=== PATIENT | male | born 1975 | race Caucasian/White ===

== ENCOUNTER 2024-09-01 18:12 | Emergency (ER) | payer OTHER, SELFPAY ==
--- NOTE | ~2024-09-01 | XR_ITS ---
CHEST RADIOGRAPH, PA AND LATERAL CLINICAL HISTORY: abnormal breath sounds RLL cough x 1 week . COMPARISON: None available TECHNIQUE: PA and lateral views of the chest. FINDINGS The cardiomediastinal silhouette is unremarkable. Increased opacification of the superior segment of the right lower lobe, possibly an early infiltrate . The remainder of the lungs are clear. Visualized osseous structures and soft tissues are unremarkable. IMPRESSION: Early infiltrate within the right lower lobe, as detailed above. Reviewed, dictated and finalized at location A.
[2024-09-01 18:28] VITALS: BP 152/99; PULSE 87; RESP 20; TEMP 36.6; O2SAT 97
[2024-09-01 18:30] VITALS: BP 152/99; PULSE 87; RESP 20; TEMP 36.6; O2SAT 97
--- NOTE | 2024-09-01 18:34 | ED.URI ---
HPI - URI/Sore Throat General Chief Complaint: Upper Respiratory Infection Stated Complaint: Fever Time Seen by Provider: 09/01/24 18:30 Source: patient, RN notes reviewed and old records reviewed Mode of arrival: ambulatory Limitations: no limitations History of Present Illness HPI Narrative: Patient presents with complaints of 4 days of productive cough and fever. He reports multiple sick contacts in household, 1 child does have pneumonia. He does report pain with coughing, sometimes coughing until he is short of breath. Otherwise he denies any chest pain or shortness of breath. He is in no distress upon arrival. He has no other concerns or complaints at this time. Reports T-max of 102?, has been taking Tylenol ibuprofen with moderate relief. Related Data Allergies Allergy/AdvReac Type Severity Reaction Status Date / Time No Known Allergies Allergy Verified 09/01/24 18:30 Review of Systems Review of Systems: All systems reviewed & are unremarkable except as noted in HPI and below Constitutional: Constitutional: Reports no additional constitutional complaints ENT: Reports system reviewed and no additional complaints, except as documented Cardiovascular: Cardiovascular: Reports no additional cardiovascular complaints Respiratory: Respiratory: Reports as per HPI, Reports no additional respiratory complaints, Reports chest congestion, Reports cough, Reports excessive phlegm production and Reports pain with cough Gastrointestinal: Gastrointestinal: Reports no additional gastrointestinal complaints PMFSH Comments At the time of my signature, I reviewed and agree with the nursing past medical, surgical, social, and family history. There is no relevant family history pertinent to the patient complaint. Exam Const: General: cooperative, no acute distress, alert and awake Orientation/consciousness: oriented to person, oriented to place and oriented to time HENMT: Head: normal to inspection Resp: Effort & Inspection: normal respiratory effort and able to speak in complete sentences Auscultation: clear to auscultation bilaterally, crackles, rales, rhonchi right lower and wheezes scattered wheezes Cardio: Palpation: normal PMI Rate: regular rate Rhythm: regular rhythm Heart sounds: S1 normal heart sound present and S2 normal heart sound present Neuro: General: oriented to person, oriented to place and oriented to time Cranial nerves: Yes CN's II-XII intact bilaterally Psych: Appearance: grossly normal Thought process: Normal thought process present Insight: Good insight present (Psych) Judgement: Good judgement present (Psych) Course Course Level of Care: Express Care Visit Vital Signs Vital signs: Vital Signs Temperature 97.8 F 10/11/24 18:28 Pulse Rate 87 09/01/24 18:28 Respiratory Rate 20 09/01/24 18:28 Blood Pressure 152/99 H 09/01/24 18:28 Pulse Oximetry 97 09/01/24 18:28 Oxygen Delivery Room Air 09/01/24 18:28 Temperature 97.8 F 09/01/24 18:30 Pulse Rate 87 09/01/24 18:30 Respiratory Rate 20 09/01/24 18:30 Blood Pressure 152/99 H 09/01/24 18:30 Pulse Oximetry 97 09/01/24 18:30 Oxygen Delivery Room Air 09/01/24 18:30 Reviewed MDM - URI/Sore Throat MDM Narrative Medical decision making narrative: patient nontoxic appearing, no shortness of breath or other distress. Stable for discharge home with p.o. antibiotics and inhaler. Exam and x-ray consistent with right lower lobe pneumonia. Follow with primary care provider without fail. Emergency department for new or worse symptoms. Elevated blood pressure noted, another reason to follow with primary care provider. Discharge instructions reviewed with patient, as well as provided in writing per nursing staff. The instructions also include specific and strict return/GO TO THE ER as well as f/u information. All questions have been answered, and the patient deny any further questions with discharge and discha
== END 2024-09-01 19:23 | disposition home or self-care (01) ==
PROVIDERS: Emergency Provider Nurse Practitioner Family
DX: R03.0 Elevated blood-pressure reading, without diagnosis of hypertension (principal); J10.1 Influenza due to other identified influenza virus with other respiratory manifestations
CPT/HCPCS: 71046; 99213; G0463

== ENCOUNTER 2024-10-18 11:16 | Outpatient (CLI) | payer OTHER, SELFPAY ==
--- NOTE | ~2024-10-18 | XR_ITS ---
EXAMINATION: XR chest 2V 10/18/2024 11:45 INDICATION: Personal history of pneumonia PROCEDURE: 2 view chest COMPARISON: 09/01/2024 FINDINGS: The lungs are clear. The cardiomediastinal silhouette is within normal limits. There are no pleural effusions. There is no pneumothorax suspected. IMPRESSION: 1: NO ACUTE CARDIOPULMONARY DISEASE. Reviewed, dictated and finalized at location B. 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
[2024-10-18 11:59] LABS: Alanine Aminotransferase 34 U/L (6-50); Albumin Level 4.4 g/dL (3.5-5.1); Alkaline Phosphatase 62 U/L (38-126); Anion Gap 6 mmol/L (4-12); Aspartate Amino Transferase 25 U/L (17-59); Bilirubin,Total 1.2 mg/dL (0.2-1.3); Blood Urea Nitrogen 17 mg/dL (9-20); Calcium 8.7 mg/dL (8.4-10.2); Carbon Dioxide 27 mmol/L (22-30); Chloride 106 mmol/L (98-107); Cholesterol 203 mg/dL (0-200); Estimated Glomerular Filt Rate > 60; Glucose 98 mg/dL (65-110); HDL Direct 47 mg/dL; Hematocrit 45.9 % (42.0-52.0); Hemoglobin 15.8 g/dL (14.0-18.0); Mean Corpuscular HGB Conc 34.4 g/dl (32-36); Mean Corpuscular Volume 87.3 fl (80-100); Platelet Count Result 319 k/mm3 (150-375); Potassium 4.5 mmol/L (3.4-5.0); Red Blood Count 5.26 M/mm3 (4.6-6.20); Red Cell Distribution Width 12.6 % (11.5-14.5); Sodium 139 mmol/L (137-145); Triglycerides 149 mg/dL (<150); White Blood Count 8.1 K/mm3 (4.5-10.0)
[2024-10-18 12:10] LABS: LDL Cholesterol Direct 107 mg/dL
== END 2024-10-18 11:17 | disposition home or self-care (01) ==
LOC: ANHLAB 11:18
PROVIDERS: Visit Provider Family Medicine
DX: Z00.00 Encounter for general adult medical examination without abnormal findings (principal); E66.9 Obesity, unspecified; Z87.01 Personal history of pneumonia (recurrent)
CPT/HCPCS: 36415; 71046; 80053; 80061; 82306; 82607; 85027

== ENCOUNTER 2025-01-10 00:58 | Day surgery (SDC) | payer OTHER, SELFPAY ==
[2024-12-25 14:00] VITALS: BMI 38.5
--- OUTSIDE RECORDS SUMMARY | 2025-01-10 01:01 | XMS_ITS | Encounter Summary ---
Author Organization [facility] Address [address] [place] [address] Care Team Providers Care Stretching Machine Tender Frame Name Role Phone Anton Pickens MD Primary Care Provider [phone] Encounter Details Date Type Department Care Team (Late st Contact Info) Description 05/26/[address] [facility] Conversion Md, Generic Conversion, Social History Tobacco Use Types Packs/Day Years Used Date Smoking Tobacco: Never Assessed Sex and Gender Information Value Date Recorded Sex Assigned at Not on file Legal Sex Male 11:12 PM CDT Gender Identity Not on file Sexual Orientation Not on file documented as of this encounter Plan of Treatment Not on file documented as of this encounter Visit Diagnoses Not on filedocumented in this encounter Care Teams Stretching Machine Tender Frame Relationship Specialty Start Date End Date Anton Pickens MD PCP - General FAMILY PRACTICE 01/05/19 documented as of this encounter
--- OUTSIDE RECORDS SUMMARY | 2025-01-10 01:01 | XMS_ITS | Clinical Summary ---
Author Organization [facility] Address [address] [place] [address] Care Team Providers Care Twill Cutter Name Role Phone Anton Pickens MD Primary Care Provider [phone] Allergies No known active allergies Medications fluticasone propionate (FLONASE) 50 MCG/ACT nasal sprayIndications :Decreased sense of smell 1 spray by Nasal route daily. 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 Elevated BP without diagnosis of hypertension Family History Medical History Relation Comments Cancer Father colon Diabetes Father Heart Disease Father Hyperlipidemia Father Relation Status Comments Father Mother Alive Social History Tobacco Use Types Packs/Day Years Used Date Smoking Tobacco: Never Smokeless Tobacco: Never Alcohol Use Standard Drinks/Week Comments Yes 0 (1 standard drink = 0.6 oz pur e alcohol) AUDIT-C Answer Date Recorded Frequency of Alcohol Consumption Never 02/16/2019 Average Number of Drinks Not on file 019 Frequency of Binge Drinking Not on file 01/21 Sex and Gender Information Value Date Recorded Sex Assigned at Not on file Legal Sex Male 11:12 PM CDT Gender Identity Not on file Sexual Orientation Not on file Last Filed Vital Signs Vital Sign Reading Time Taken Comments Blood Pressure 138/80 04/06/2019 11:09 AM CDT Pulse 78 04/06/2019 11:09 AM CDT Temperature 36.9 C (98.5 F) 02/16/2019 10:58 AM CDT Respiratory Rate - - Oxygen Saturation 98% 04/06/2019 11:09 AM CDT Inhaled Oxygen Concentration - - Weight 119.3 kg (263 lb) 04/06/2019 11:09 AM CDT Height 186.7 cm (6' 1.5 ) 04/23/2016 7:35 AM CDT Body Mass Index 34.23 04/23/2016 7:35 AM CDT Plan of Treatment Health Maintenance Due Date Last Done Comments Colorectal Cancer Screening Colonoscopy (10 Years) 1975 Hepatitis C 1993 Hepatitis B Vaccines (1 of 3 - 19+ 3-dose series) 1994 DTaP, Tdap and Td Vaccines (6 - Td or Tdap) 03/05/2019 03/05/2009, 07/14/1984, 06/26/1980, Additional history exists Annual Physical 02/17/2020 02/16/2019 COVID-19 Vaccine ( season) 2024 Influenza Adult (#1) 2024 Meningococcal B Vaccine Aged Out No l onger eligible based on patient's age to complete this topic Meningococcal Vaccine Aged Out No ja mayra eligible based on patient's age to complete this topic Pneumococcal Vaccine: Pediatrics (0 to 5 Years) and At-Risk Patients (6 to 64 Years) Aged Out No longer eligible based on patient's age to complete this topic RSV Immunizations Under 20 Months Aged Out No longer eligible based on patient's age to complete this topic Insurance Care Teams Twill Cutter Relationship Specialty Start Date End Date Anton Pickens MD PCP - General FAMILY PRACTICE 01/05/19
[2025-01-10 09:54] VITALS: BP 128/91; PULSE 63; RESP 18; TEMP 36.3; O2SAT 99; BMI 37.9
[2025-01-10] MEDS: LACTATED RINGERS 1,000 ML 150 ML IV CONT (09:58)
--- NOTE | 2025-01-10 11:03 | P.PNAN_ITS ---
Anes - Initial Pre Proc Eval Procedure: Operation Date: 01/10/25 11:00 Proposed Procedures p Screening Colonoscopy - Yash Handley MD Date/Time: 01/10/25 11:03 Surgeon: Yash Handley MD Pre Op Diagnosis: screening colon Patient Data Age: 49 Gender: M Height: 1.88 m Weight: 133.9 kg Last Vital Signs Temp 97.4 F L 01/10/25 09:54 Pulse 63 01/10/25 09:54 Resp 18 01/10/25 09:54 BP 128/91 H 01/10/25 09:54 Pulse Ox 99 01/10/25 09:54 O2 Del Method Room Air 01/10/25 09:54 Allergies Allergy/AdvReac Type Severity Reaction Status Date / Time No Known Allergies Allergy Verified 01/10/25 09:51 Home Medications ?Medication ?Instructions ?Recorded ?Confirmed ?Type tirzepatide (weight loss) 2.5 See Rx Instructions .Route 11/28/24 01/10/25 Rx mg/0.5 mL subcutaneous pen .COMPLEX #2 mL injector (Zepbound) Patient hx anesthesia problems: none Family hx anesthesia problems: none Results Review: All pre-operative results and documents have been reviewed as part of the pre- operative evaluation. [facility] Family History Family History Father Carcinoma of colon Sibling Breast cancer Sibling Acute myocardial infarction Social History Social History Smoking status: Never smoker Tobacco type: cigarettes Alcohol intake: current Drinks per week: 6 Alcohol use details: Beer Substance use: never Substance use type: does not use Do You Feel Safe in your Home?: Yes Lack of Transportation: No Lack of Food: Never True Current Housing: I Have Housing Concerned About Future Housing: No Difficulty Paying Gas/Electric Bills: No Difficulty Paying for Meds: No Currently Unemployed: YES Education: High School Diploma/GED Difficulty w/ Childcare or Family Care: No Living arrangements: with family Occupation/Education: occupation Gender identity (if verbalized by the patient): Male Sexual Orientation (if Verbalized by the Patient): Straight or Heterosexual Spiritual care concerns: No Agree to blood products: Yes Anes - Eval Final PreProcedure Day of Procedure 01/10/25 11:03 Patient weight: obese Lungs: normal air movement Airway: Mallampati scale class II Neurological: alert and oriented Last oral intake: >/= 8 hours ASA classification: II Emergent: no Anesthetic plan: proceed Anesthesia type and monitoring: general GIVS and standard monitoring Results Review: All pre-operative results and documents have been reviewed as part of the pre-o perative evaluation. BMI 37. Informed Consent: The patient's anesthetic plan and its attendant risks and benefits were discussed with the patient/family/POA. Questions were solicited and answers provided to the satisfaction of the patient/family/POA.
--- NOTE | 2025-01-10 11:03 | PM.HPGS ---
History of Present Illness History of Present Illness Consent: Risks, benefits, and alternatives have been discussed and questions answered. Patient agrees to proceed with procedure. Chief complaint: screening colon Narrative: Selvin Cruz is a 49 year old male here for first screening colonoscopy Review of Systems Review of Systems: All systems reviewed & are unremarkable except as noted in HPI and below PMFSH Family History Family History (Updated 10/18/24 @ 09:54 by Starla Souza CMA) Father Carcinoma of colon Sibling Breast cancer Sibling Acute myocardial infarction Social History Social History (Updated 10/18/24 @ 09:56 by Starla Souza CMA) Smoking status: Never smoker Tobacco type: cigarettes Alcohol intake: current Drinks per week: 6 Alcohol use details: Beer Substance use: never Substance use type: does not use Do You Feel Safe in your Home?: Yes Lack of Transportation: No Lack of Food: Never True Current Housing: I Have Housing Concerned About Future Housing: No Difficulty Paying Gas/Electric Bills: No Difficulty Paying for Meds: No Currently Unemployed: YES Education: High School Diploma/GED Difficulty w/ Childcare or Family Care: No Living arrangements: with family Occupation/Education: occupation Gender identity (if verbalized by the patient): Male Sexual Orientation (if Verbalized by the Patient): Straight or Heterosexual Spiritual care concerns: No Agree to blood products: Yes Meds Home Medications and Allergies Home Medications ?Medication ?Instructions ?Recorded ?Confirmed ?Type tirzepatide (weight loss) 2.5 See Rx Instructions .Route 11/28/24 01/10/25 Rx mg/0.5 mL subcutaneous pen .COMPLEX #2 mL injector ([employer]) Allergies Allergy/AdvReac Type Severity Reaction Status Date / Time No Known Allergies Allergy Verified 01/10/25 09:51 Vital Signs Vital Signs - 24 hr 01/10/25 09:54 Temperature 97.4 F L Pulse Rate 63 Respiratory Rate 18 Blood Pressure 128/91 H Pulse Oximetry 99 Oxygen Delivery Room Air Exam Const: General: comfortable and no acute distress HENMT: Face/Nose/Sinus: Normal nares present Eyes: General: appearance normal, both eyes and all related structures Neck: Neck: no JVD Resp: Auscultation: clear to auscultation bilaterally Cardio: Rate: regular rate Rhythm: regular rhythm GI: Inspection: non-distended GI Palp: Yes Soft to palpation Skin: General skin exam: normal color Neuro: General: gait normal Speech: normal speech Extrem: General: normal to inspection Psych: Mental Status: mental status grossly normal Assessment and Plan Assessment and plan (1) Colon cancer screening: Code(s): Z12.11 - Encounter for screening for malignant neoplasm of colon Status: Acute Assessment and Plan: colonoscopy
[2025-01-10 11:29] VITALS: BP 126/79; PULSE 125; RESP 21; O2SAT 94
[2025-01-10 11:39] VITALS: BP 117/88; PULSE 128; RESP 23; O2SAT 99
[2025-01-10 11:49] VITALS: BP 106/72; PULSE 121; RESP 20; O2SAT 100
--- NOTE | 2025-01-10 12:02 | WPDANESPN ---
Anes - Prog Note Post-Op Date/Time: 01/10/25 12:02 Vital Signs: Last Vital Signs Temp 97.4 F L 01/10/25 09:54 Pulse 128 H 01/10/25 11:39 Resp 23 H 01/10/25 11:39 BP 117/88 01/10/25 11:39 Pulse Ox 99 01/10/25 11:39 O2 Del Method Room Air 01/10/25 11:39 Pain Score (VAS): 0 I/O: Intake & Output 01/09/25 01/10/25 01/10/25 23:59 07:59 15:59 Intake Total 0 Balance 0 Patient Feedback: pt awake. resting without complaint. pt's HR remains tachy, variable 110-130's. pt states he does feel that his HR is elevated periodically. discussed need for follow up with pt's primary care for further evaluation.
--- NOTE | 2025-01-10 12:55 | SUR.PHASEII ---
1200 ANTHONY DURBIN CHECKED ON PATIENT; HR STILL IN 120'S; NO SOB/DIZZINESS. PATIENT ENCOURAGED TO BE EVALUATED BY PMD FOR TACHYCARDIA.
== END 2025-01-10 12:12 | disposition home or self-care (01) ==
PROVIDERS: PCP Family Medicine; Visit Provider Internal Medicine Gastroenterology
PROC: 0DJD8ZZ Inspection of Lower Intestinal Tract, Via Natural or Artificial Opening Endoscopic (ICD-10-PCS; CPT 45378; principal; 2025-01-10 11:00)
DX: Z12.11 Encounter for screening for malignant neoplasm of colon (principal); D12.8 Benign neoplasm of rectum; K64.8 Other hemorrhoids; K57.30 Diverticulosis of large intestine without perforation or abscess without bleeding; E66.9 Obesity, unspecified; Z68.37 Body mass index [BMI] 37.0-37.9, adult; Z79.85 Long-term (current) use of injectable non-insulin antidiabetic drugs; Z80.0 Family history of malignant neoplasm of digestive organs; Z80.3 Family history of malignant neoplasm of breast; Z82.49 Family history of ischemic heart disease and other diseases of the circulatory system
CPT/HCPCS: 45385; 88305; J2003; J2704; J2765; J7120

== ENCOUNTER 2025-02-16 17:05 | Emergency (ER) | payer OTHER, SELFPAY ==
--- NOTE | ~2025-02-16 | XR_ITS ---
EXAMINATION: XR chest 2V 02/16/2025 17:33 INDICATION: Cough and shortness of breath for 2 weeks PROCEDURE: 2 view chest COMPARISON: 10/18/2024 FINDINGS: The lungs are clear. The cardiomediastinal silhouette is within normal limits. There are no pleural effusions. There is no pneumothorax suspected. IMPRESSION: 1: NO ACUTE CARDIOPULMONARY DISEASE. Reviewed, dictated and finalized at location A.
--- OUTSIDE RECORDS SUMMARY | 2025-02-16 17:08 | XMS_ITS | Clinical Summary ---
Author Organization [facility] Address [address] [place] [address] Care Team Providers Care Construction Engineer Name Role Phone Anton Pickens MD Primary Care Provider [phone] Allergies No known active allergies Medications fluticasone [...] to complete this topic Insurance Care Teams Construction Engineer Relationship Specialty Start Date End Date Anton Pickens MD PCP - General FAMILY PRACTICE 01/05/19
--- OUTSIDE RECORDS SUMMARY | 2025-02-16 17:08 | XMS_ITS | Encounter Summary ---
Author Organization [facility] Address [address] [place] [address] Care Team Providers Care Locomotive Oiler Name Role Phone Anton Pickens MD Primary Care Provider [phone] Encounter Details Date Type Department Care Team (Late st Contact Info) Description 05/26/2000 Abstract [facility] Conversion Md, Generic Conversion, Social History [...] on filedocumented in this encounter Care Teams Locomotive Oiler Relationship Specialty Start Date End Date Anton Pickens MD PCP - General FAMILY PRACTICE 01/05/19 documented as of this encounter
--- NOTE | 2025-02-16 17:16 | ED.URI ---
HPI - URI/Sore Throat General Chief Complaint: Upper Respiratory Infection Stated Complaint: lung and side pain/poss pneumonia Time Seen by Provider: 02/16/25 17:07 Source: patient Mode of arrival: ambulatory Limitations: no limitations History of Present Illness HPI Narrative: Selvin is a 49-year-old male patient presenting to the clinic today with complaints of cough, chest congestion, shortness of breath on exertion, and left-sided lung pain. He thinks he may have pneumonia. Feels some was sling and crackling over the left lungs. Symptoms been going on for 2 weeks. Cough is nonproductive however 1 day he did cough up some blood. Denies any fevers, chills, or body aches. States his sons have both had influenza A in the last couple months. Related Data Allergies Allergy/AdvReac Type Severity Reaction Status Date / Time No Known Allergies Allergy Verified 02/16/25 17:22 Review of Systems Review of Systems: Pertinent positives per HPI. Patient denies any fever, chills, rash, headache, visual changes, dizziness, chest pain, palpitations, nausea, vomiting, diarrhea, constipation, abdominal pain, or any urinary issues. [facility] Family History Family History Father Carcinoma of colon Sibling Breast cancer Sibling Acute myocardial infarction Social History Social History Smoking status: Never smoker Tobacco type: cigarettes Alcohol intake: current Drinks per week: 6 Alcohol use details: Beer Substance use: never Substance use type: does not use Do You Feel Safe in your Home?: Yes Lack of Transportation: No Lack of Food: Never True Current Housing: I Have Housing Concerned About Future Housing: No Difficulty Paying Gas/Electric Bills: No Difficulty Paying for Meds: No Currently Unemployed: YES Education: High School Diploma/GED Difficulty w/ Childcare or Family Care: No Living arrangements: with family Occupation/Education: occupation Gender identity (if verbalized by the patient): Male Sexual Orientation (if Verbalized by the Patient): Straight or Heterosexual Spiritual care concerns: No Agree to blood products: Yes Comments At the time of my signature, I reviewed and agree with the nursing past medical, surgical, social, and family history. There is no relevant family history pertinent to the patient complaint. Exam Narrative: General: Well-developed, obese, in no apparent distress Head: Normocephalic, atraumatic Eyes: Pupils equally round and reactive to light bilaterally, EOM intact, sclera and conjunctive clear, no discharge, lids normal Ears: TMs intact and clear, ear canals clear, no drainage, grossly hearing normal. Nose: Nares patent, no discharge, no inflammation, no sinus tenderness. Mouth: Oral pharynx without lesions or masses, good dentition, MMM. Neck: Supple, trachea midline, no enlargement of anterior or posterior cervical nodes, no thyroid masses or goiter palpable. Cardio: Regular rate and rhythm, s1 and s2 normal, no murmur appreciated. Resp: Expiratory wheezing with rhonchi over the left mid lung zone, no rales or rubs Course Course Emergency Course: Portions of this record may have been created with voice recognition software. Level of Care: Express Care Visit Vital Signs Vital signs: Vital Signs Temperature 36.2 C L 02/16/25 17:18 Pulse Rate 104 H 02/16/25 17:18 Respiratory Rate 20 02/16/25 17:18 Blood Pressure 135/115 H 02/16/25 17:18 Pulse Oximetry 99 02/16/25 17:18 Oxygen Delivery Room Air 02/16/25 17:18 Temperature 36.2 C L 02/16/25 17:18 Pulse Rate 104 H 02/16/25 17:18 Respiratory Rate 20 02/16/25 17:18 Blood Pressure 135/115 H 02/16/25 17:18 Pulse Oximetry 99 02/16/25 17:18 Oxygen Delivery Room Air 02/16/25 17:18 Vital signs reviewed MDM - URI/Sore Throat MDM Narrative Medical decision making narrative: At the time of visit patient is resting comfortably on the exam table. Patient appears to be nontoxic. Diagnostics: Chest x-rays negative for any acute cardiopulmonary process. Plan: I suspect patient has bronchitis. Prescription for azithromycin, prednisone, and albuterol inhaler was sent to the pharmacy. Supportive measures were discussed with the patient and they voiced understanding discharge instructions and agrees to treatment plan. Return precautions reviewed Differential Diagnosis Differential diagnosis: Likely upper respiratory infection, otitis media, sinusitis, viral infection, bronchitis, influenza, pharyngitis and other (COVID) Discharge Plan Discharge Clinical Impression: Bronchitis Patient Disposition: Home, Self-Care Condition: Stable Instructions: Antibiotic Form, Acute Bronchitis (ED) Additional Instructions: Chest x-rays negative for any acute cardiopulmonary process. Take prescription medications only as prescribed-prednisone, azithromycin, and albuterol inhaler Increase fluids and stay well hydrated Tylenol/motrin for pain/fever Flonase and OTC antihistamines as directed Vicks vapor rub to open sinuses Sinus rinses for congestion Cepacol spray, cough drops, throat lozenges, warm tea with honey/lemon, gargle salt water to soothe throat BRAT diet for diarrhea Clear liquids x 24 hours then advance as tolerated for nausea/vomiting Go to the ED if you develop a worsening in your condition- high fever not controlled by Tylenol or Motrin, dehydration, weakness, lethargy, shortness of breath, or chest pain. Follow up with your PCP in 3-5 days if symptoms persist. Patient Language: [place] Prescriptions: New azithromycin 250 mg tablet See Rx Instructions .ROUTE .COMPLEX Qty: 6 0RF Rx Instructions: For 250 mg dose pack: take 500 mg today (day 1), then 250 mg for 4 days (days 2-5) prednisone 20 mg tablet 40 mg PO DAILY 5 Days Qty: 10 0RF albuterol sulfate 90 mcg/actuation HFA aerosol inhaler 2 puff inhalation Q4-6H PRN (Reason: shortness of breath or wheezing) 30 Days Qty: 8.5 0RF No Action Zepbound 5 mg/0.5 mL pen injector 5 mg subcut WEEKLY Qty: 2 0RF Follow-up/Referrals: Anton Pickens MD [Primary Care Provider] - Time of Disposition: 17:44 Quality NIHSS Nursing Documentation ED NIHSS nursing documentation: reviewed/agree
[2025-02-16 17:18] VITALS: BP 135/115; PULSE 104; RESP 20; TEMP 36.2; O2SAT 99
[2025-02-16 17:50] VITALS: BP 136/103
== END 2025-02-16 17:50 | disposition home or self-care (01) ==
PROVIDERS: Emergency Provider Nurse Practitioner Family; PCP Family Medicine
DX: J40 Bronchitis, not specified as acute or chronic (principal)
CPT/HCPCS: 71046; 99213; G0463

== ENCOUNTER 2025-03-20 02:00 | Inpatient (IN) | payer OTHER, SELFPAY ==
[2025-03-20] VITALS (45 sets, daily range): BP systolic 117–191; BP diastolic 77–172; PULSE 73–156; RESP 13–30; TEMP 36.4–37.2; O2SAT 93–100; BMI 40.0
--- NOTE | 2025-03-20 | ECHO_ITS ---
Patient Info Name: Selvin Kan Age: 49 years : 1975 Gender: Male Ht: 72 in Wt: 295 lbs BSA: 2.66 m2 HR: 90 bpm BP: 128 / 82 mmHg Heart Rhythm: Atrial Fibrillation Technical Quality: Fair Exam Date: 03/20/2025 3:03 PM Exam Location: Echo Lab Patient Status: Inpatient Admit Date: 03/20/2025 Staff Ordering Physician: Kathryn Liu It Trainer: Yamileth Vasquez RDCS Attending Provider: Cecily Naranjo DO Referring Physician: Alexa MULLER; Exam Type: CA echo dop color flow w con Study Info Indications - A-fib Complete two-dimensional, color flow and Doppler transthoracic echocardiogram is performed with contrast to opacify the left ventricle and to improve the deliniation of the left ventricle endocardial borders. Contrast/Agitated Saline Contrast/Ag. Saline: Definity Amount: 2.00 ml Existing IV Access: Yes IV Access Condition: patent with no signs of infiltration Summary 1. Definity contrast utilized to improve visualization. 2. Left ventricular enlargement with severe global systolic dysfunction ejection fraction 30%. 3. Biatrial dilation right greater than left. 4. Mild mitral pulmonic and tricuspid regurgitation. 5. Atrial fibrillation. Left Ventricle Left ventricular chamber dimension is moderately enlarged. Left ventricular systolic function is severely reduced, estimated at 30-35%. The left ventricular diastolic function is indeterminate. Right Ventricle Right ventricular chamber dimension is mildly enlarged. Left Atria Left atrial chamber dimension is moderately enlarged. Right Atria Right atrial chamber dimension is mildly enlarged. Aortic Valve The aortic valve is normal. Pulmonic Valve The pulmonic valve is not well visualized. There is mild pulmonic regurgitation. Mitral Valve The mitral valve has normal leaflets. There is trace mitral valve regurgitation. Tricuspid Valve The tricuspid valve leaflets are normal. There is mild tricuspid valve regurgitation. Pericardium/Pleural The pericardium appears normal. Aorta The aortic root size at the sinus of Valsalva is normal. Left Ventricular Outflow Tract Name Value Normal LVOT 2D LVOT Diameter 2.39 cm LVOT Doppler LVOT Peak Gradient 2 mmHg LVOT Mean Gradient 1 mmHg LVOT VTI 13.10 cm LVOT VTI/AV VTI Ratio 0.79 LVOT Stroke Volume 58.72 ml LVOT CO 13.69 l/min LVOT CI 5.14 L/min/m2 Pulmonic Valve Name Value Normal PV Doppler PV Peak Gradient 2 mmHg Mitral Valve Name Value Normal MV Doppler MV Decel [facility] 360.74 cm/s2 MV PHT 0 s MV Area (PHT) 3.71 cm2 4.00-5.00 MV Diastolic Function MV E Peak Velocity 73.79 cm/s MV A Peak Velocity 28.24 cm/s MV E/A 2.61 MV Decel Time 0 s MV Annular TDI MV E/e' (Septal) 6.49 <=8.00 Tricuspid Valve Name Value Normal TV Regurgitation Doppler TR Peak Velocity 227.17 cm/s TR Peak Gradient 21 mmHg Estimated PAP/RSVP RA Pressure 10 mmHg <=5 PA Systolic Pressure 31 mmHg <36 RV Systolic Pressure 31 mmHg <36 Aorta Name Value Normal Ascending Aorta Ao Root Diameter (MM) 3.73 cm Ao Root Diam Index (MM) 1.40 cm/m2 Aortic Valve Name Value Normal AV Doppler AV Peak Velocity 105.32 cm/s AV Peak Gradient 4 mmHg AV Mean Gradient 3 mmHg AV VTI 16.62 cm AV Area (Cont Eq VTI) 3.53 cm2 >=3.00 AV Area (Cont Eq Rai) 3.14 cm2 AV Regurgitation 2D LVOT Area 4.48 cm2 Ventricles Name Value Normal LV Dimensions 2D/MM IVS Diastolic Thickness (2D) 1.21 cm 0.60-1.00 LVID Diastole (2D) 5.78 cm 4.20-5.80 LVIW Diastolic Thickness (2D) 1.08 cm 0.60-1.00 LVID Systole (2D) 5.18 cm 2.50-4.00 LVOT Diameter 2.39 cm LV Mass (2D Cubed) 278.05 g 88.00-224.00 LV Mass Index (2D Cubed) 0.01 g/cm2 0.00-0.01 Relative Wall Thickness (2D) 0.37 LV Fractional Shortening/Ejection Fraction 2D/MM LV Fractional Shortening (2D) 10 % 25-43 LV EF (2D Teicholz) 22 % 52-72 LV Diastolic Volume (4C MOD) 241.15 ml LV EF (4C MOD) 31 % LV Diastolic Volume (2C MOD) 183.18 ml LV EF (2C MOD) 40 % LV Diastolic Volume (BP MOD) 221.08 ml 62.00-150.00 LV Diastolic Volume Index (BP MOD) 0.08 l/m2 0.03-0.07 LV Systolic Volume (BP MOD) 139.07 ml 21.00-61.00 LV Systolic Volume Index (BP MOD) 0.05 l/m2 0.01-0.03 LV EF (BP MOD) 37 % 52-72 LV Diastolic Length (4C) 9.99 cm LV Systolic Length (4C) 9.27 cm LV Stroke Volume (4C MOD) 74.28 ml RV Dimensions 2D/MM RVID Diastole (2D) 4.70 cm 2.50-3.50 Atria Name Value Normal LA Dimensions LA Dimension (MM) 4.48 cm 3.00-4.10 LA Volume (4C A-L) 155.57 ml LA Volume (BP A-L) 151.31 ml RA Dimensions RA Area (4C) 25.14 cm2 <=18.00 Report Signatures
--- NOTE | ~2025-03-20 | CT_ITS ---
Clinical Indication: Atrial fibrillation, right lower extremity swelling CT Scan of the Chest with Contrast: Technique: Contiguous sections were acquired throughout the chest after intravenous administration of 100 cc of Omnipaque 350. Dose reduction technique was used on this scan by utilizing automated expos ure control and iterative reconstruction technique. The dose-length product (DLP) was 1251.97 mGy-cm. Findings: There is no evidence of any significant mediastinal, hilar or axillary lymphadenopathy. There is no f illing defect in the pulmonary arterial tree to suggest pulmonary embolus. There is no evidence of ao rtic dissection or aneurysm. No pericardial effusion. Small to moderate right pleural effusion present. Minimal left pleural effusion present. There is mil d diffuse groundglass and interstitial pulmonary edema. There is mild bibasilar atelectasis.. Images through the upper abdomen reveal no abnormalities. Impression: No evidence of pulmonary embolus, aortic dissection, or aortic aneurysm. [id number] right pleural effusion and minimal left pleural effusion. Mild mixed alveolar and interstitial pulmonary edema with mild bibasilar atelectatic change. Reviewed, dictated and finalized at [facility]. Impression: No evidence of pulmonary embolus, aortic dissection, or aortic aneurysm. [id number]-bd-[id number] right pleural effusion and minimal left pleural effusion. Mild mixed alveolar and interstitial pulmonary edema with mild bibasilar atelec tatic change.
--- NOTE | ~2025-03-20 | US_ITS ---
EXAMINATION: US venous doppler [facility] DATE: 03/20/2025 14:02 INDICATION: Lower limb swelling, right greater than left. TECHNIQUE: Grayscale ultrasound images without and with compression and Doppler ultrasound images of the bilateral lower extremity veins were obtained. COMPARISON: None. FINDINGS: The visualized portions of right common femoral vein, profunda (deep) femoral vein, femoral vein, pop liteal vein, posterior tibial veins, peroneal veins, gastrocnemius vein and greater saphenous vein ou tflow are patent. The visualized portions of left common femoral vein, profunda femoral vein, femoral vein, popliteal v ein, posterior tibial veins, peroneal veins, gastrocnemius vein and greater saphenous vein outflow ar e patent. IMPRESSION: 1. No deep venous thrombosis in either lower limb. Reviewed, dictated and finalized at location B.
--- NOTE | ~2025-03-20 | XR_ITS ---
Clinical Indication: Chest pain PA and lateral views of the chest: Comparison: 02/16/2025 Findings: There is bibasilar interstitial prominence and haziness. Probable minimal right pleural eff usion. Cardiomediastinal silhouette is within normal limits. Bones and soft tissues are unremarkable . Impression: Worsening bibasilar interstitial pulmonary edema with minimal right pleural effusion. Reviewed, dictated and finalized at location . Impression: Worsening bibasilar interstitial pulmonary edema with minimal right pleural eff usion.
--- NOTE | 2025-03-20 02:02 | ECG_ITS ---
Test Date: 2025-03-20 02:06:34 Measurements Intervals [place] Rate: 152 P: 0 AL: 0 QRS: 1 QRSD: 105 T: 42 QT: 304 QTc: 484 Interpretive Statements ATRIAL FIBRILLATION WITH RAPID VENTRICULAR RESPONSE VENTRICULAR PREMATURE COMPLEX INCOMPLETE RIGHT BUNDLE BRANCH BLOCK POSSIBLE ANTERIOR MYOCARDIAL INFARCTION , PROBABLY OLD BORDERLINE T WAVE ABNORMALITY- INF/HIGH LAT LEADS BASELINE ARTIFACT- I, III, AVR, AVL, V1 ABNORMAL ECG No previous ECG available for comparison Electronically Signed On 03-20-2025 06:12:22 CDT by Hair Shay D.O.
--- OUTSIDE RECORDS SUMMARY | 2025-03-20 02:02 | XMS_ITS | Clinical Summary ---
Author Organization [facility] Address [address] [place] [address] Care Team Providers Care Intelligence Chief Name Role Phone Anton Pickens MD Primary Care Provider [phone] Allergies No known active allergies Medications fluticasone [...] 02/17/2020 02/16/2019 COVID-19 Vaccine ( season) 2024 Meningococcal B Vaccine Aged Out No l onger eligible based on patient's age to complete this topic Meningococcal Vaccine Aged Out No ja mayra eligible based on patient's age to complete this topic Pneumococcal Vaccine: Pediatrics (0 to 5 Years) and At-Risk Patients (6 to 49 Years) Aged Out No longer eligible based on patient's age to complete this topic RSV Immunizations Under 20 Months Aged Out No longer eligible based on patient's age to complete this topic Insurance [employer] Care Teams Intelligence Chief Relationship Specialty Start Date End Date Anton Pickens MD PCP - General FAMILY PRACTICE 01/05/19
--- OUTSIDE RECORDS SUMMARY | 2025-03-20 02:02 | XMS_ITS | Encounter Summary ---
Author Organization [facility] Address [address] [place] [address] Care Team Providers Care Dyed Yarn Operator Name Role Phone Anton Pickens MD Primary Care Provider [phone] Encounter Details Date Type Department Care Team (Late st Contact Info) Description 05/26/2000 Abstract [facility] Conversion Md, Generic Conversion, Social [...] on filedocumented in this encounter Care Teams Dyed Yarn Operator Relationship Specialty Start Date End Date Anton Pickens MD PCP - General FAMILY PRACTICE 01/05/19 documented as of this encounter
[2025-03-20 02:24] LABS: Basophils Percent Auto 0.5 % (0.2-1.2); Eosinophils Absolute Auto 0.1 K/mm3 (0-0.3); Eosinophils Percent Auto 1.7 % (0-4.4); Hematocrit 47.5 % (42.0-52.0); Hemoglobin 15.6 g/dL (14.0-18.0); Immature Granulocyte Absolute 0.05 K/mm3 (0.00-0.031); Immature Granulocyte Percent A 0.7 % (0-0.5); Lymphocytes Absolute Auto 1.92 K/mm3 (0.9-3.2); Lymphocytes Percent Auto 25.3 % (18.3-44.2); Mean Corpuscular HGB Conc 32.8 g/dl (32-36); Mean Corpuscular Hemoglobin 29.1 pg (26-34); Mean Corpuscular Volume 88.6 fl (80-100); Mean Platelet Volume 9.8 fl (7.4-10.4); Monocytes Absolute Auto 0.6 K/mm3 (0.1-0.6); Monocytes Percent Auto 8.3 % (2.6-8.5); Neutrophils Absolute Auto 4.8 K/mm3 (1.3-6.7); Neutrophils Percent Auto 63.5 % (45.5-73.1); Platelet Count Result 335 k/mm3 (150-375); Red Blood Count 5.36 M/mm3 (4.6-6.20); Red Cell Distribution Width 13.3 % (11.5-14.5); White Blood Count 7.6 K/mm3 (4.5-10.0)
--- NOTE | 2025-03-20 02:34 | ED_ITS ---
HPI - Chest Pain General Chief Complaint: Chest Pain Stated Complaint: chest pain/sob Time Seen by Provider: 03/20/25 02:20 History of Present Illness HPI narrative: 49-year-old male with no significant pertinent past medical history aside from hypertension and obesity. Patient presents to the emergency department with discomfort in his chest and shortness of breath with minor activity. He is found to be AFib/RVR in triage and brought to room 9. For medical resuscitation. Patient endorses chest discomfort feeling for about 10 days. Associated belching, bloating and shortness of breath sensations. No history of irregular heartbeat, no history of cardiac disease. He has a brother that of an aortic dissection. Denies any abdominal pain, back pain, fever, chills. notes that he has been complaining of calf cramping in his right side he does have bilateral lower extremity swelling right worse than left. No history of DVT. No blood thinner use. No anticoagulation or rate control medications. Related Data Allergies Allergy/AdvReac Type Severity Reaction Status Date / Time No Known Allergies Allergy Verified 03/20/25 02:01 Review of Systems 2 Review of Systems: As reviewed above in HPI FORMERLY [facility], [facility] Past Medical History Medical History Elevated blood pressure reading Family History Family History Father Carcinoma of colon Sibling Breast cancer Sibling Acute myocardial infarction Social History Social History Smoking status: Never smoker Tobacco type: cigarettes Alcohol intake: current Drinks per week: 6 Alcohol use details: Beer Substance use: never Substance use type: does not use Do You Feel Safe in your Home?: Yes Lack of Transportation: No Lack of Food: Never True Current Housing: I Have Housing Concerned About Future Housing: No Difficulty Paying Gas/Electric Bills: No Difficulty Paying for Meds: No Currently Unemployed: YES Education: High School Diploma/GED Difficulty w/ Childcare or Family Care: No Living arrangements: with family Occupation/Education: occupation Gender identity (if verbalized by the patient): Male Sexual Orientation (if Verbalized by the Patient): Straight or Heterosexual Spiritual care concerns: No Agree to blood products: Yes Exam 2 Narrative: GENERAL: Morbidly obese but overall well-appearing not any distress HEAD: [Normocephalic, atraumatic.] EYES: [PERRLA and EOMI.] ENT: Nares clear, no rhinorrhea or epistaxis. Mucous membranes moist. NECK: Supple. CHEST: [Clear to auscultation. No respiratory distress.] HEART: Irregular rate and rhythm. No murmur heard. [Normal peripheral pulses.] ABDOMEN: [Soft, nondistended], [nontender], [No rigidity or guarding] EXTREMITIES: Normal range of motion. 1+ bilateral pitting edema right side greater than left SKIN: Warm, dry, no rash. NEURO: [No focal deficits]. Alert and oriented [x3.] PSYCH: [Normal mood and affect.] Course Vital Signs Vital signs: Vital Signs Temperature 36.4 C 03/20/25 02:13 Pulse Rate 73 03/20/25 02:13 Respiratory Rate 20 03/20/25 02:13 Blood Pressure 144/131 H 03/20/25 02:13 Pulse Oximetry 100 03/20/25 02:13 Oxygen Delivery Room Air 03/20/25 02:13 Temperature 36.4 C 03/20/25 02:13 Pulse Rate 100 03/20/25 06:39 Respiratory Rate 16 03/20/25 06:39 Blood Pressure 139/88 03/20/25 06:39 Pulse Oximetry 98 03/20/25 06:39 Oxygen Delivery Room Air 03/20/25 02:41 MDM - Chest Pain MDM Narrative Medical decision making narrative: 49-year-old male presenting to the emergency department with chest discomfort and shortness of breath. Symptoms going on for 10 days. Found to be AFib RVR on triage vitals and EKG. Brought back into room 9. For medical resuscitation. He is presently awake alert oriented with vital signs that show blood pressure 144 over 129. Tachycardia in the 150s, respiratory rate 19, no hypoxia. He has right lower extremity swelling worse than left, complaining of chest pain shortness a breath and found to be in a new dysrhythmia. Considerations presently are for ACS, cardiomyopathy, pulmonary embolism or less likely aortic pathology. Possibility reaction to an infectious process such as pneumonia or pneumothorax less likely. Laboratory studies obtained, CBC, CMP, troponin, EKG, chest x-ray, CT angiography of the chest ordered. He was given 20 mg of diltiazem and a diltiazem drip ordered. Heparin drip ordered with bolus initiated. Patient placed on residential monitor and frequently re-evaluated. Patient re-evaluated after heparin and diltiazem. He is now rate control with a heart rate in the low 100s. Repeat EKG obtained shows rate control atrial fibrillation with no ST segment concerns. Laboratory studies reassuring without any leukocytosis or anemia. Normal platelet count. Electrolytes are normal. Normal renal function, normal glucose. Initial and 3 hour troponin are negative. Negative lipase. Chest x-ray shows pulmonary edema and right pleural effusion. CTA shows no evidence of pulmonary embolism dissection or aneurysm. Patient is hemodynamically stable at this time. I spoke to the hospitalist Dr. Naranjo who accepted the patient to the IMU for continued evaluation and treatment. Patient was made aware of the plan for admission and comfortable at this time. Medical Records Data Attestation: I reviewed the patient's medical records. Lab Data Attestation: I reviewed the patient's lab results. 03/20/25 02:12 03/20/25 02:12 Labs: Lab Results 03/20/25 03/20/25 Range/Units 02:12 05:26 WBC 7.6 (4.5-10.0) K/mm3 RBC 5.36 (4.6-6.20) M/mm3 Hgb 15.6 (14.0-18.0) g/dL Hct 47.5 (42.0-52.0) % MCV 88.6 (80-100) fl MCH 29.1 (26-34) pg MCHC 32.8 (32-36) g/dl RDW 13.3 (11.5-14.5) % Plt Count 335 (150-375) k/mm3 MPV 9.8 (7.4-10.4) fl Immature Gran % (Auto) 0.7 H (0-0.5) % Neut % (Auto) 63.5 (45.5-73.1) % Lymph % (Auto) 25.3 (18.3-44.2) % Ware % (Auto) 8.3 (2.6-8.5) % Eos % (Auto) 1.7 (0-4.4) % Baso % (Auto) 0.5 (0.2-1.2) % Lymph # (Auto) 1.92 (0.9-3.2) K/mm3 Ware # (Auto) 0.6 (0.1-0.6) K/mm3 Eos # (Auto) 0.1 (0-0.3) K/mm3 Baso # (Auto) 0.0 (0.0-0.1) K/mm3 Abs Immat Gran (auto) 0.05 H (0.00-0.031) K/mm3 Absolute Neuts (auto) 4.8 (1.3-6.7) K/mm3 Absolute Nucleated RBC 0.000 (0.0-0.012) K/mm3 Nucleated RBC % 0.0 (0.0-0.2) % PT 15.2 H (11.1-14.7) Seconds INR 1.2 APTT 28.8 (22.3-36.8) Seconds Sodium 138 (137-145) mmol/L Potassium 3.8 (3.4-5.0) mmol/L Chloride 103 (98-107) mmol/L Carbon Dioxide 24 (22-30) mmol/L Anion Gap 11 (4-12) mmol/L BUN 17 (9-20) mg/dL Creatinine 1.10 (0.7-1.3) mg/dL Estim Creat Clear Calc 100 ml/min Estimated GFR > 60 (59 - ) Glucose 120 H (65-110) mg/dL Calcium 9.1 (8.4-10.2) mg/dL Total Bilirubin 1.1 (0.2-1.3) mg/dL AST 26 (17-59) U/L ALT 50 (6-50) U/L Alkaline Phosphatase 61 (38-126) U/L Troponin I < 0.012 < 0.012 (0.000-0.034) ng/mL Total Protein 7.0 (6.3-8.2) g/dL Albumin 4.3 (3.5-5.1) g/dL Lipase 134 (23-300) U/L Imaging Data Attestation: I personally reviewed and interpreted this imaging study as follows: My impression: No evidence of PE, or dissection ECG Data EKG #1: Attestation: I personally reviewed and interpreted this ECG as follows: ECG completion date: 03/20/25 ECG completion time: 02:06 Prior ECG tracings: not available for review Interpretation: Atrial fibrillation with rapid ventricular response. No P-waves. QTC 484. QRS 105. Rate of 152 beats per minute. No ST segment elevations, depressions or inversions. Final interpretation AFib RVR. Critical Care Time Critical Care Time Critical Care Time: Yes Total Critical Care Time: 40 Discharge Plan Discharge Clinical Impression: Atrial fibrillation with rapid ventricular response, Chest pain, New onset a- fib, Pulmonary edema, Pleural effusion Patient Disposition: Still a Patient Condition: Stable Time of Disposition: 06:44
[2025-03-20 02:37] LABS: Alanine Aminotransferase 50 U/L (6-50); Albumin Level 4.3 g/dL (3.5-5.1); Alkaline Phosphatase 61 U/L (38-126); Anion Gap 11 mmol/L (4-12); Aspartate Amino Transferase 26 U/L (17-59); Bilirubin,Total 1.1 mg/dL (0.2-1.3); Blood Urea Nitrogen 17 mg/dL (9-20); Calcium 9.1 mg/dL (8.4-10.2); Carbon Dioxide 24 mmol/L (22-30); Chloride 103 mmol/L (98-107); Estimated CRCL calculation 100 ml/min; Estimated Glomerular Filt Rate > 60; Glucose 120 mg/dL (65-110); Lipase 134 U/L (23-300); Potassium 3.8 mmol/L (3.4-5.0); Sodium 138 mmol/L (137-145)
[2025-03-20 02:43] LABS: INR 1.2; Partial Thromboplastin Time 28.8 Seconds (22.3-36.8); Prothrombin Time 15.2 Seconds (11.1-14.7)
[2025-03-20 02:48] LABS: Troponin I < 0.012 ng/mL (0.000-0.034)
[2025-03-20] MEDS: ASPIRIN 81 MG CHEWABLE TABLET 324 MG PO (03:22)
[2025-03-20] MEDS: dilTIAZem HCl INJ 25 MG/5 ML VIAL 20 MG IV PUSH (03:22)
[2025-03-20] MEDS: dilTIAZem 100 MG/100 ML 100 MG/100 ML BAG IV CONT (03:23)
--- OUTSIDE RECORDS SUMMARY | 2025-03-20 03:52 | XMS_ITS | Encounter Summary ---
Author Organization [facility] Address [address] [place] [address] Care Team Providers Care Novelty Maker Name Role Phone Anton Pickens MD Primary Care Provider [phone] Encounter Details Date Type Department Care Team (Late st Contact Info) Description 05/26/2000 Abstract [facility] Conversion Md, Generic Conversion, Social [...] on filedocumented in this encounter Care Teams Novelty Maker Relationship Specialty Start Date End Date Anton Pickens MD PCP - General FAMILY PRACTICE 01/05/19 documented as of this encounter
--- OUTSIDE RECORDS SUMMARY | 2025-03-20 03:52 | XMS_ITS | Clinical Summary ---
Author Organization [facility] Address [address] [place] [address] Care Team Providers Care Parts Picker Name Role Phone Anton Pickens MD Primary Care Provider Allergies No known active allergies Medications fluticasone [...] complete this topic Insurance [employer] Care Teams Parts Picker Relationship Specialty Start Date End Date Anton Pickens MD PCP - General FAMILY PRACTICE 01/05/19
--- NOTE | 2025-03-20 03:55 | ECG_ITS ---
Test Date: 2025-03-20 03:57:42 Measurements Intervals [place] Rate: 91 P: 0 MD: 0 QRS: 20 QRSD: 106 T: 209 QT: 372 QTc: 459 Interpretive Statements ATRIAL FIBRILLATION INCOMPLETE RIGHT BUNDLE BRANCH BLOCK CONSIDER ANTERIOR INFARCT, AGE INDETERMINATE T WAVE ABNORMALITY IN LATERAL LEADS- CONSIDER ISCHEMIA ABNORMAL ECG Compared to ECG 03/20/2025 02:06:34 HEART RATE HAS DECREASED T-wave abnormality now present Possible ischemia now present Electronically Signed On 03-20-2025 06:13:41 CDT by Hair Shay D.O.
[2025-03-20] MEDS: HEPARIN SODIUM 5,000 UNITS/ML VIAL 4000 UNITS XX (04:10)
[2025-03-20] MEDS: HEPARIN SOD/D5W 100 UNITS/ML 25,000 UNITS/250 ML BAG 10 UNITS IV CONT (04:11)
[2025-03-20] MEDS: PHARMACIST COMMUNICATION ORDER 1 EACH XX (04:21)
[2025-03-20 06:03] LABS: Troponin I < 0.012 ng/mL (0.000-0.034)
--- NOTE | 2025-03-20 06:54 | ADMGEN ---
This patient, Selvin Kan, was admitted to IMU Room 211-01. Patient/family oriented to hospital policies and general routines including ID bracelet, bed and alarms, visiting hours, pain management, procedures, bathroom and other care routines, personal items, smoking policy, room service/diet, and visiting hours. Information on how to activate the Rapid Response Team has been discussed. Patient/Family are encouraged to report perceived risks to care and to ask questions if they do not understand what they are told or what they should do.
--- NOTE | 2025-03-20 08:27 | ECG_ITS ---
Test Date: 2025-03-20 09:10:47 Measurements Intervals [place] Rate: 116 P: 0 CO: 0 QRS: 27 QRSD: 110 T: 209 QT: 336 QTc: 467 Interpretive Statements ATRIAL FIBRILLATION WITH RAPID VENTRICULAR RESPONSE WITH VENTRICULAR PREMATURE COMPLEX INCOMPLETE RIGHT BUNDLE BRANCH BLOCK CONSIDER ANTERIOR INFARCT, AGE INDETERMINATE CONSIDER INFERIOR INFARCT, AGE INDETERMINATE T WAVE ABNORMALITY IN ANTEROLATERAL LEADS- CONSIDER ISCHEMIA BASELINE ARTIFACT- I, II, III, AVR, AVL, AVF, V1 ABNORMAL ECG Compared to ECG 03/20/2025 03:57:42 HEART RATE HAS INCREASED Electronically Signed On 03-20-2025 09:25:19 CDT by Hair Shay D.O.
--- NOTE | 2025-03-20 08:44 | P.CONCA_ITS ---
Assessment and Plan Assessment and plan (1) Atrial fibrillation with rapid ventricular response: Code(s): I48.91 - Unspecified atrial fibrillation Status: Acute Assessment and Plan: This is a new diagnosis. Chronicity is unknown. I discussed this diagnosis including the pathophysiology, management strategies, risks/complications. As this is his first known occurrence of atrial fibrillation through shared decision making with the patient and his , rhythm control strategy will be pursued. * Continue diltiazem for now, plan for TIAGO/DCCV tomorrow with anesthesia (likely has undiagnosed YVROSE) * Continue heparin gtt, after DCCV will require DOAC for 30 days. Would not require fci a/c as he has a low CHADs2 Vasc score. * TTE pending * Check apnea link * Check TSH * NPO after midnight for TIGAO/DCCV tomorrow (2) Hypertension: Qualifiers: Hypertension type: primary hypertension Qualified Code(s): I10 - Essential (primary) hypertension Code(s): I10 - Essential (primary) hypertension Status: Acute Assessment and Plan: At goal. (3) Pleural effusion: Code(s): J90 - Pleural effusion, not elsewhere classified Status: Acute Assessment and Plan: Will give furosemide 20mg IV x 1 now. Further recommendations to follow review of TTE. History of Present Illness History of Present Illness Consult date/time: 03/20/25 08:44 Requesting physician: Enrique Nichols MD Consult reason: atrial fibrillation Reason For Visit: New onset atrial fibrillation with rapid ventricul Narrative: Selvin Kan is a 49 year old male with hypertension and obesity. He comes to the hospital with a chief complaint of shortness of breath. Cardiology is consulted because of atrial fibrillation with rapid ventricular response. He has noticed increasing shortness of breath over the past 10 days. Also has noticed abdominal distension and notes swelling to his right ankle. Also complaining of frequent belching and a sensation that something is stuck in his throat. He denies any chest pain, palpitations, syncope. He was in atrial fibrillation with rates in the 140's when he presented to the hospital and now his rates are generally 110-120bpm on a diltiazem drip. He is resting comfortably in bed at the time of my evaluation and is not in any distress. Review of Systems 2 Constitutional: Constitutional: Denies chills, Denies fever(s), Denies headache(s) and Denies malaise Eyes: Eyes: Denies change in vision ENT: Reports Normal hearing present, Denies dizziness, Denies headache(s) and Denies hearing loss Cardiovascular: Cardiovascular: Denies chest pain, Denies chest pain at rest, Denies chest pain with activity, Denies syncope, Reports leg edema, Denies palpitations, Reports dyspnea and Denies dyspnea on exertion Respiratory: Respiratory: Denies cough, Reports dyspnea, Denies dyspnea on exertion and Denies wheezing Gastrointestinal: Gastrointestinal: Reports as per HPI, Denies abdominal pain, Reports bloating, Denies constipation and Denies diarrhea Genitourinary: Genitourinary: Denies hematuria and Denies dysuria Musculoskeletal: Musculoskeletal: Denies myalgias, Denies arthralgias and Denies muscle cramps Integumentary/Breasts: Skin/Breast: Denies wounds Neurologic: Reports Normal hearing present, Denies confusion, Denies dizziness, Denies syncope and Denies headache(s) Psychiatric: Psychiatric: Denies anxiety, Denies confusion and Denies depression Endocrine: Endocrine: Denies cold intolerance, Denies flushing, Denies heat intolerance and Denies palpitations Hematologic/Lymphatic: Hematologic/Lymphatic: Denies easy bleeding and Denies easy bruising Allergic/Immunologic: Allergic/Immunologic: Denies wheezing PMFSH Past Medical History Medical History Elevated blood pressure reading Family History Family History Father Carcinoma of colon Sibling Breast cancer Sibling Acute myocardial infarction Social History Social History Smoking status: Never smoker Tobacco type: cigarettes Alcohol intake: current Drinks per week: 8 Alcohol use details: Beer Substance use: never Substance use type: does not use Do You Feel Safe in your Home?: Yes Lack of Transportation: No Lack of Food: Never True Current Housing: I Have Housing Concerned About Future Housing: No Difficulty Paying Gas/Electric Bills: No Difficulty Paying for Meds: No Currently Unemployed: No Education: Decline to Answer Difficulty w/ Childcare or Family Care: No Living arrangements: with family Occupation/Education: occupation Gender identity (if verbalized by the patient): Male Sexual Orientation (if Verbalized by the Patient): Straight or Heterosexual Spiritual care concerns: No Agree to blood products: Yes Meds Home Medications and Allergies Home Medications ?Medication ?Instructions ?Recorded ?Confirmed ?Type tirzepatide (weight loss) 5 mg/0.5 5 mg (0.5 mL) subcut WEEKLY #2 mL 02/19/25 03/20/25 Rx mL subcutaneous pen injector (Zepbound) lisinopril 10 mg tablet 10 mg PO DAILY #30 tabs 02/22/25 03/20/25 Rx albuterol sulfate 90 mcg/actuation 2 puff inhalation Q4-6H PRN 03/13/25 03/20/25 Rx aerosol inhaler shortness of breath or wheezing 30 days #8.5 grams Allergies Allergy/AdvReac Type Severity Reaction Status Date / Time No Known Allergies Allergy Verified 03/20/25 02:01 Vital Signs Vital Signs - 24 hr 03/20/25 02:13 03/20/25 02:25 03/20/25 02:30 Temperature 36.4 C Pulse Rate 73 154 H 150 H Respiratory Rate 20 19 23 H Blood Pressure 144/131 H Pulse Oximetry 100 98 98 Oxygen Delivery Room Air 03/20/25 02:36 03/20/25 02:37 03/20/25 02:41 Temperature Pulse Rate 156 H 156 H Respiratory Rate 17 Blood Pressure 145/125 H Pulse Oximetry 98 97 Oxygen Delivery Room Air 03/20/25 02:46 03/20/25 03:18 03/20/25 03:23 Temperature Pulse Rate 152 H 149 H 143 H Respiratory Rate 21 H 18 Blood Pressure 149/128 H 191/172 H Pulse Oximetry 99 Oxygen Delivery 03/20/25 03:30 03/20/25 03:31 03/20/25 03:32 Temperature Pulse Rate 104 H 111 H 103 H Respiratory Rate 18 23 H 20 Blood Pressure 125/102 H 125/102 H Pulse Oximetry 97 99 99 Oxygen Delivery 03/20/25 03:45 03/20/25 04:00 03/20/25 04:15 Temperature Pulse Rate 106 H 96 89 Respiratory Rate 13 15 20 Blood Pressure Pulse Oximetry 98 96 Oxygen Delivery 03/20/25 04:17 03/20/25 04:30 03/20/25 04:32 Temperature Pulse Rate 97 105 H 97 Respiratory Rate 15 23 H 21 H Blood Pressure 123/90 135/108 H Pulse Oximetry 97 97 Oxygen Delivery 03/20/25 04:45 03/20/25 04:47 03/20/25 05:00 Temperature Pulse Rate 100 114 H 115 H Respiratory Rate 21 H 30 H 16 Blood Pressure 156/104 H Pulse Oximetry 93 96 Oxygen Delivery 03/20/25 05:02 03/20/25 05:20 03/20/25 05:43 Temperature Pulse Rate 99 110 H 118 H Respiratory Rate 19 21 H 29 H Blood Pressure 163/122 H Pulse Oximetry 93 97 94 Oxygen Delivery 03/20/25 05:45 03/20/25 06:39 03/20/25 06:56 Temperature 36.8 C Pulse Rate 119 H 100 100 Respiratory Rate 22 H 16 16 Blood Pressure 139/88 139/88 Pulse Oximetry 96 98 98 Oxygen Delivery 03/20/25 07:08 03/20/25 08:00 03/20/25 08:12 Temperature 36.5 C 36.8 C Pulse Rate 111 H 130 H 124 H Respiratory Rate 17 20 Blood Pressure 133/104 H 133/104 H 117/89 Pulse Oximetry 98 98 Oxygen Delivery Exam 2 Const: General: comfortable, no acute distress, alert and awake O rientation/consciousness: patient oriented x3 HENMT: Head: normal to inspection Eyes: General: appearance normal, both eyes and all related structures P upils: Equal, round and reactive pupils present Neck: Neck: normal visual inspection, supple and no JVD Carotids: normal carotid upstroke Resp: Effort & Inspection: normal respiratory effort Auscultation: rales bilateral at the base Cardio: Rate: tachycardic Rhythm: abnormal rhythm irregularly irregular Heart sounds: S1 normal heart sound present, S2 normal heart sound present and no murmurs GI: Auscultation: normal bowel sounds Skin: General skin exam: normal color Neuro: General: patient oriented x3 Cranial nerves: Yes Equal, round and reactive pupils present Extrem: General: normal to inspection Other: no edema Psych: Appearance: grossly normal Mental Status: mental status grossly normal Results Labs and Meds 03/20/25 02:12 03/20/25 02:12 Lab results: Cardiac Enzymes 03/20/25 03/20/25 Range/Units 02:12 05:26 AST 26 (17-59) U/L Troponin I < 0.012 < 0.012 (0.000-0.034) ng/mL Coagulation 03/20/25 Range/Units 02:12 PT 15.2 H (11.1-14.7) Seconds APTT 28.8 (22.3-36.8) Seconds CBC 03/20/25 Range/Units 02:12 WBC 7.6 (4.5-10.0) K/mm3 RBC 5.36 (4.6-6.20) M/mm3 Hgb 15.6 (14.0-18.0) g/dL Hct 47.5 (42.0-52.0) % Plt Count 335 (150-375) k/mm3 Lymph # (Auto) 1.92 (0.9-3.2) K/mm3 [place] # (Auto) 0.6 (0.1-0.6) K/mm3 Eos # (Auto) 0.1 (0-0.3) K/mm3 Baso # (Auto) 0.0 (0.0-0.1) K/mm3 Comprehensive Metabolic Panel 03/20/25 Range/Units 02:12 Sodium 138 (137-145) mmol/L Potassium 3.8 (3.4-5.0) mmol/L Chloride 103 (98-107) mmol/L Carbon Dioxide 24 (22-30) mmol/L BUN 17 (9-20) mg/dL Creatinine 1.10 (0.7-1.3) mg/dL Glucose 120 H (65-110) mg/dL Calcium 9.1 (8.4-10.2) mg/dL AST 26 (17-59) U/L ALT 50 (6-50) U/L Alkaline Phosphatase 61 (38-126) U/L Total Protein 7.0 (6.3-8.2) g/dL Albumin 4.3 (3.5-5.1) g/dL Intake and Output 03/19/25 03/20/25 03/20/25 23:59 07:59 15:59 Intake Total 23.1 Balance 23.1 Intake: IV 23.1 dilTIAZem 100 MG/100 ML 100 mg 23.1 In 100 ml @ 10 MG/HR 10 mls/hr IV CONT .Q10H STA Rx#:[id number] Patient Weight 03/20/25 23:59 Weight 134 kg
[2025-03-20 08:53] LABS: Troponin I < 0.012 ng/mL (0.000-0.034)
[2025-03-20 10:03] LABS: Partial Thromboplastin Time 34.7 Seconds (22.3-36.8)
[2025-03-20] MEDS: HEPARIN SOD/D5W 100 UNITS/ML 25,000 UNITS/250 ML BAG 14 UNITS IV CONT (10:23)
[2025-03-20] MEDS: HEPARIN SODIUM 5,000 UNITS/ML VIAL 8000 UNITS IV PUSH ×2 (10:23→23:21)
[2025-03-20] MEDS: FUROSEMIDE INJ 40 MG/4 ML VIAL 20 MG IV PUSH ×2 (12:45→18:44)
[2025-03-20] MEDS: PERFLUTREN LIPID MICROSPHERES 1.5 ML VIAL DILUTED TO 10 ML TOTAL VOLUME IV PUSH (15:30)
--- NOTE | 2025-03-20 15:44 | IVDEFINITY ---
Prior to administration of IV Definity the patient was educated on the risks and benefits of the imaging enhancing agent including potential adverse side effects. The patient verbalized understanding. Allergies were verified. No exclusion criteria were identified and at least one of the following inclusion criteria were met: 1) physician request, 2) patient technically difficult to image (per the [place] [employer] guidelines of two or more segments not discernable within the apical view), or 3) questionable left ventricular function. ?
[2025-03-20] MEDS: dilTIAZem 100 MG/100 ML 100 MG/100 ML BAG 10 MG IV CONT (15:48)
[2025-03-20 17:22] LABS: Hemoglobin A1C 5.5 % (<5.7)
[2025-03-20 17:24] LABS: Partial Thromboplastin Time 92.2 Seconds (22.3-36.8)
[2025-03-20 17:26] LABS: Cholesterol 162 mg/dL (0-200); HDL Direct 43 mg/dL; Triglycerides 78 mg/dL (<150)
[2025-03-20 17:37] LABS: LDL Cholesterol Direct 83 mg/dL
--- NOTE | 2025-03-20 17:44 | P.HP_ITS ---
H&P: HPI History of Present Illness Date/Time: 03/20/25 17:44 Chief Complaint: SOb and chest pain Narrative: 49 yo M with no significant PMH who presented to the ER with SOB and Chest pain. Noted that he has been having SOB the past 10 days however he stated he started having chest pain about 1 am last night. otherwise denies any vomiting, abd pain, diarrhea, no lightheadedness and loss of consciousness. ER eval noted OK 154, RR 19, T 97.6, BP 144/131, saturating 100% on room air. Labs mostly unremarkable, troponin negative X3, LDL 83, A1c 5.5, TSH 3.24. Venous doppler negative, CTA chest small to moderate right pleural effusion and minimal left pleural effusion and interstitial pulmonary edema. EKG showed afib RVR. patient was placed on Cardizem infusion. and cardiology consulted and has evaluated patient recommended possible TIAGO with cardioversion tomorrow if patient is still in Afib by tomorrow. Review of Systems Review of Systems: All other systems were reviewed and negative except as noted in the HPI above [facility] Past Medical History Medical History Elevated blood pressure reading Family History Family History Father Carcinoma of colon Sibling Breast cancer Sibling Acute myocardial infarction Social History Social History Smoking status: Never smoker Tobacco type: cigarettes Alcohol intake: current Drinks per week: 8 Alcohol use details: Beer Substance use: never Substance use type: does not use Do You Feel Safe in your Home?: Yes Lack of Transportation: No Lack of Food: Never True Current Housing: I Have Housing Concerned About Future Housing: No Difficulty Paying Gas/Electric Bills: No Difficulty Paying for Meds: No Currently Unemployed: No Education: Decline to Answer Difficulty w/ Childcare or Family Care: No Living arrangements: with family Occupation/Education: occupation Gender identity (if verbalized by the patient): Male Sexual Orientation (if Verbalized by the Patient): Straight or Heterosexual Spiritual care concerns: No Agree to blood products: Yes Meds Home Medications and Allergies Home Medications ?Medication ?Instructions ?Recorded ?Confirmed ?Type tirzepatide (weight loss) 5 mg/0.5 5 mg (0.5 mL) subcut WEEKLY #2 mL 02/19/25 03/20/25 Rx mL subcutaneous pen injector (Zepbound) lisinopril 10 mg tablet 10 mg PO DAILY #30 tabs 02/22/25 03/20/25 Rx albuterol sulfate 90 mcg/actuation 2 puff inhalation Q4-6H PRN 03/13/25 03/20/25 Rx aerosol inhaler shortness of breath or wheezing 30 days #8.5 grams Allergies Allergy/AdvReac Type Severity Reaction Status Date / Time No Known Allergies Allergy Verified 03/20/25 02:01 Vital Signs Vital Signs - 24 hr 03/20/25 02:13 03/20/25 02:25 03/20/25 02:30 Temperature 97.6 F Pulse Rate 73 154 H 150 H Respiratory Rate 20 19 23 H Blood Pressure 144/131 H Pulse Oximetry 100 98 98 Oxygen Delivery Room Air 03/20/25 02:36 03/20/25 02:37 03/20/25 02:41 Temperature Pulse Rate 156 H 156 H Respiratory Rate 17 Blood Pressure 145/125 H Pulse Oximetry 98 97 Oxygen Delivery Room Air 03/20/25 02:46 03/20/25 03:18 03/20/25 03:23 Temperature Pulse Rate 152 H 149 H 143 H Respiratory Rate 21 H 18 Blood Pressure 149/128 H 191/172 H Pulse Oximetry 99 Oxygen Delivery 03/20/25 03:30 03/20/25 03:31 03/20/25 03:32 Temperature Pulse Rate 104 H 111 H 103 H Respiratory Rate 18 23 H 20 Blood Pressure 125/102 H 125/102 H Pulse Oximetry 97 99 99 Oxygen Delivery 03/20/25 03:45 03/20/25 04:00 03/20/25 04:15 Temperature Pulse Rate 106 H 96 89 Respiratory Rate 13 15 20 Blood Pressure Pulse Oximetry 98 96 Oxygen Delivery 03/20/25 04:17 03/20/25 04:30 03/20/25 04:32 Temperature Pulse Rate 97 105 H 97 Respiratory Rate 15 23 H 21 H Blood Pressure 123/90 135/108 H Pulse Oximetry 97 97 Oxygen Delivery 03/20/25 04:45 03/20/25 04:47 03/20/25 05:00 Temperature Pulse Rate 100 114 H 115 H Respiratory Rate 21 H 30 H 16 Blood Pressure 156/104 H Pulse Oximetry 93 96 Oxygen Delivery 03/20/25 05:02 03/20/25 05:20 03/20/25 05:43 Temperature Pulse Rate 99 110 H 118 H Respiratory Rate 19 21 H 29 H Blood Pressure 163/122 H Pulse Oximetry 93 97 94 Oxygen Delivery 03/20/25 05:45 03/20/25 06:39 03/20/25 06:56 Temperature 98.2 F Pulse Rate 119 H 100 100 Respiratory Rate 22 H 16 16 Blood Pressure 139/88 139/88 Pulse Oximetry 96 98 98 Oxygen Delivery 03/20/25 07:08 03/20/25 08:00 03/20/25 08:00 Temperature 97.7 F Pulse Rate 111 H 130 H 130 H Respiratory Rate 17 Blood Pressure 133/104 H 133/104 H Pulse Oximetry 98 Oxygen Delivery 03/20/25 08:12 03/20/25 10:00 03/20/25 10:00 Temperature 98.2 F Pulse Rate 124 H 105 H 108 H Respiratory Rate 20 Blood Pressure 117/89 128/82 Pulse Oximetry 98 Oxygen Delivery 03/20/25 10:13 03/20/25 12:00 03/20/25 12:00 Temperature 98.2 F 97.9 F Pulse Rate 108 H 100 100 Respiratory Rate 20 20 Blood Pressure 128/82 159/115 H 126/91 H Pulse Oximetry 98 98 Oxygen Delivery 03/20/25 12:00 03/20/25 12:19 03/20/25 14:00 Temperature Pulse Rate 119 H 105 H Respiratory Rate Blood Pressure 126/91 H Pulse Oximetry Oxygen Delivery 03/20/25 14:00 03/20/25 14:10 03/20/25 15:48 Temperature 97.6 F Pulse Rate 106 H 106 H 112 H Respiratory Rate 20 Blood Pressure 118/86 118/86 118/86 Pulse Oximetry 99 Oxygen Delivery 03/20/25 16:00 03/20/25 16:12 Temperature 97.7 F Pulse Rate 108 H 108 H Respiratory Rate 18 Blood Pressure 154/77 H 154/77 H Pulse Oximetry 97 Oxygen Delivery Exam Narrative: General: alert and comfortable Eyes: EOMI, PERRLA ENNT External ears normal, Neck is supple, no masses, Respiratory systems: Clear to auscultation Cardiovascular S1, S2, normal rhythm, no murmur, rub, or gallop; no thrill or palpable murmurs on palpation. Gastrointestinal: soft, non-tender, and non-distended abdomen with no masses; BS present Skin: no rash, lesions, ulcerations, subcutaneous nodules or induration Musculoskeletal: no abnormality and no tenderness, normal ROM Neurologic: Alert and oriented x3, non focal Mental Status Exam: normal affect H&P: Results Labs Labs: Short CBC 03/20/25 Range/Units 02:12 WBC 7.6 (4.5-10.0) K/mm3 Hgb 15.6 (14.0-18.0) g/dL Hct 47.5 (42.0-52.0) % Plt Count 335 (150-375) k/mm3 BMP 03/20/25 02:12 Sodium 138 Potassium 3.8 Chloride 103 Carbon Dioxide 24 BUN 17 Creatinine 1.10 Glucose 120 H Calcium 9.1 Cardiac Enzymes 03/20/25 03/20/25 03/20/25 Range/Units 02:12 05:26 08:20 Troponin I < 0.012 < 0.012 < 0.012 (0.000-0.034) ng/mL Liver Function 03/20/25 Range/Units 02:12 Total Bilirubin 1.1 (0.2-1.3) mg/dL AST 26 (17-59) U/L ALT 50 (6-50) U/L Alkaline Phosphatase 61 (38-126) U/L Albumin 4.3 (3.5-5.1) g/dL Assessment and Plan Assessment and plan (1) Atrial fibrillation with rapid ventricular response: Code(s): I48.91 - Unspecified atrial fibrillation Status: Acute (2) New onset a-fib: Code(s): I48.91 - Unspecified atrial fibrillation Status: Acute Plan Atrial fibrillation with Rapid ventricular response new onset TSH wnl, LDL 83 Troponin negative x3. ECHO pending On Cardizem infusion, heparin infusion, Cardiology following for TIAGO with cardioversion monitor Pulm edema r/o Heart failure continue lasix monitor DVT prophylaxis on heparin infusion Full code Surrogate decision maker Yulisa Lucius
[2025-03-20] MEDS: SIMETHICONE 125 MG CHEW TAB PO (20:27)
[2025-03-20 23:11] LABS: Partial Thromboplastin Time 47.7 Seconds (22.3-36.8)
[2025-03-21] VITALS (28 sets, daily range): BP systolic 100–137; BP diastolic 57–106; PULSE 80–108; RESP 16–22; TEMP 36.4–37; O2SAT 94–99
--- NOTE | 2025-03-21 | ECHO_ITS ---
Patient Info Name: Selvin Cruz Age: 49 years : 1975 Gender: Male Ht: 72 in Wt: 295 lbs BSA: 2.66 m2 HR: 89 bpm BP: 131 / 98 mmHg Heart Rhythm: Atrial Fibrillation Technical Quality: Good Exam Date: 03/21/2025 1:31 PM Exam Location: Echo Lab Patient Status: Inpatient Admit Date: 03/20/2025 Staff Ordering Physician: Kathryn Liu Digital Advertising Analyst: Kelly Gallardo RDCS Attending Provider: Cecily Naranjo DO Referring Physician: Alexa MULLER; Exam Type: CA echo transesophageal Study Info Indications - cardioversion r/o thrombus Complete two-dimensional, color flow and Doppler transesophageal study is performed. Procedure Details The patient arrived in a fasting state after obtaining informed consent. The transesophageal probe was passed into the posterior pharynx, mid-esophagus, distal esophagus, and gastric fundus. Imaging was performed at multiple levels. The patient tolerated the procedure well and there were no complications. The patient was transferred out of the examination area in satisfactory condition. Summary 1. Mild mitral regurgitation. 2. Mild anterior leaflet prolapse. 3. No thrombus seen in the left atrium or left atrial appendage. 4. No PFO seen on agitated saline image. 5. See transthoracic report for further details. Recommendations * Proceed with cardioversion. Left Atria No thrombus seen in the left atrium or left atrial appendage. No PFO seen on agitated saline image. Mitral Valve Mild mitral regurgitation. Mild anterior leaflet prolapse. Report Signatures
[2025-03-21] MEDS: HEPARIN SOD/D5W 100 UNITS/ML 25,000 UNITS/250 ML BAG 18 UNITS IV CONT (01:20)
[2025-03-21] MEDS: dilTIAZem 100 MG/100 ML 100 MG/100 ML BAG 10 MG IV CONT ×2 (01:47→10:44)
[2025-03-21 05:42] LABS: Basophils Absolute Auto 0.1 K/mm3 (0.0-0.1); Basophils Percent Auto 0.7 % (0.2-1.2); Eosinophils Absolute Auto 0.1 K/mm3 (0-0.3); Eosinophils Percent Auto 1.6 % (0-4.4); Hematocrit 47.5 % (42.0-52.0); Hemoglobin 15.9 g/dL (14.0-18.0); Immature Granulocyte Absolute 0.02 K/mm3 (0.00-0.031); Immature Granulocyte Percent A 0.3 % (0-0.5); Lymphocytes Absolute Auto 2.07 K/mm3 (0.9-3.2); Lymphocytes Percent Auto 30.1 % (18.3-44.2); Mean Corpuscular HGB Conc 33.5 g/dl (32-36); Mean Corpuscular Hemoglobin 29.3 pg (26-34); Mean Corpuscular Volume 87.6 fl (80-100); Mean Platelet Volume 9.8 fl (7.4-10.4); Monocytes Absolute Auto 0.6 K/mm3 (0.1-0.6); Monocytes Percent Auto 9.2 % (2.6-8.5); Neutrophils Percent Auto 58.1 % (45.5-73.1); Platelet Count Result 326 k/mm3 (150-375); Red Blood Count 5.42 M/mm3 (4.6-6.20); Red Cell Distribution Width 13.5 % (11.5-14.5); White Blood Count 6.9 K/mm3 (4.5-10.0)
[2025-03-21] MEDS: SIMETHICONE 125 MG CHEW TAB PO ×3 (06:04→20:30)
[2025-03-21 06:10] LABS: Partial Thromboplastin Time 108.5 Seconds (22.3-36.8)
[2025-03-21 06:14] LABS: Vitamin D 25 Hydroxy 40.1 ng/mL
--- NOTE | 2025-03-21 07:15 | ECG_ITS ---
Test Date: 2025-03-21 14:03:17 Measurements Intervals [place] Rate: 86 P: 56 IN: 163 QRS: 22 QRSD: 122 T: 124 QT: 393 QTc: 472 Interpretive Statements SINUS RHYTHM POSSIBLE LEFT ATRIAL ENLARGEMENT INCOMPLETE RIGHT BUNDLE BRANCH BLOCK CONSIDER ANTERIOR INFARCT, AGE INDETERMINATE CONSIDER INFERIOR INFARCT, AGE INDETERMINATE T WAVE ABNORMALITY IN LATERAL LEADS- CONSIDER ISCHEMIA ABNORMAL ECG Compared to ECG 03/20/2025 09:10:47 ATRIAL FIBRILLATION NO LONGER PRESENT Electronically Signed On 03-21-2025 14:06:38 CDT by Hair Shay D.O.
[2025-03-21] MEDS: FUROSEMIDE INJ 40 MG/4 ML VIAL 20 MG IV PUSH ×2 (08:32→16:25)
[2025-03-21 12:52] LABS: Partial Thromboplastin Time 67.3 Seconds (22.3-36.8)
--- NOTE | 2025-03-21 13:00 | ECG_ITS ---
Test Date: 2025-03-21 12:42:21 Measurements Intervals [place] Rate: 113 P: 0 WA: 0 QRS: 24 QRSD: 106 T: 206 QT: 340 QTc: 467 Interpretive Statements ATRIAL FIBRILLATION WITH RAPID VENTRICULAR RESPONSE WITH FREQUENT VENTRICULAR PREMATURE COMPLEXES CONSIDER ANTERIOR INFARCT, AGE INDETERMINATE MODERATE T-WAVE ABNORMALITY, CONSIDER LATERAL ISCHEMIA BASELINE ARTIFACT- I, II, III, AVR, AVL ABNORMAL ECG Compared to ECG 03/20/2025 09:10:47 NO SIGNIFICANT CHANGE Electronically Signed On 03-21-2025 17:44:43 CDT by Hair Shay D.O.
--- NOTE | 2025-03-21 13:23 | WPDANESEPPF ---
Anes - Initial Pre Proc Eval Procedure: Operation Date: 03/21/25 13:00 Proposed Procedures p Electrical Cardioversion - Natasha Cheney MD s Trans Esophageal Echo - Natasha Cheney MD Date/Time: 03/21/25 13:23 Surgeon: Cecily Naranjo DO Pre Op Diagnosis: New onset atrial fibrillation with rapid ventricul Patient Data Age: 49 Gender: M Height: 1.83 m Weight: 133.2 kg Last Vital Signs Temp 98.0 F 03/21/25 11:34 Pulse 99 03/21/25 11:34 Resp 18 03/21/25 11:34 BP 131/98 H 03/21/25 11:34 Pulse Ox 99 03/21/25 11:34 O2 Del Method Room Air 03/21/25 08:00 FiO2 21 03/20/25 21:55 Allergies Allergy/AdvReac Type Severity Reaction Status Date / Time No Known Allergies Allergy Verified 03/21/25 08:03 Home Medications ?Medication ?Instructions ?Recorded ?Confirmed ?Type tirzepatide (weight loss) 5 mg/0.5 5 mg (0.5 mL) subcut WEEKLY #2 mL 02/19/25 03/20/25 Rx mL subcutaneous pen injector (Zepbound) lisinopril 10 mg tablet 10 mg PO DAILY #30 tabs 02/22/25 03/20/25 Rx albuterol sulfate 90 mcg/actuation 2 puff inhalation Q4-6H PRN 03/13/25 03/20/25 Rx aerosol inhaler shortness of breath or wheezing 30 days #8.5 grams Laboratory Tests 03/20/25 03/20/25 03/21/25 17:03 22:53 05:28 WBC 6.9 K/mm3 (4.5-10.0) RBC 5.42 M/mm3 (4.6-6.20) Hgb 15.9 g/dL (14.0-18.0) Hct 47.5 % (42.0-52.0) MCV 87.6 fl (80-100) MCH 29.3 pg (26-34) MCHC 33.5 g/dl (32-36) RDW 13.5 % (11.5-14.5) Plt Count 326 k/mm3 (150-375) MPV 9.8 fl (7.4-10.4) Immature Gran % (Auto) 0.3 % (0-0.5) Neut % (Auto) 58.1 % (45.5-73.1) Lymph % (Auto) 30.1 % (18.3-44.2) [place] % (Auto) 9.2 H % (2.6-8.5) Eos % (Auto) 1.6 % (0-4.4) Baso % (Auto) 0.7 % (0.2-1.2) Lymph # (Auto) 2.07 K/mm3 (0.9-3.2) [place] # (Auto) 0.6 K/mm3 (0.1-0.6) Eos # (Auto) 0.1 K/mm3 (0-0.3) Baso # (Auto) 0.1 K/mm3 (0.0-0.1) Abs Immat Gran (auto) 0.02 K/mm3 (0.00-0.031) Absolute Neuts (auto) 4.0 K/mm3 (1.3-6.7) Absolute Nucleated RBC 0.000 K/mm3 (0.0-0.012) Nucleated RBC % 0.0 % (0.0-0.2) APTT 92.2 H Seconds 47.7 H Seconds 108.5 H Seconds (22.3-36.8) (22.3-36.8) (22.3-36.8) Hemoglobin A1c 5.5 % (<5.7) Triglycerides 78 mg/dL (<150) Cholesterol 162 mg/dL (0-200) LDL Cholesterol Direct 83 mg/dL HDL Direct 43 mg/dL Vitamin D 25-Hydroxy 40.1 ng/mL 03/21/25 12:27 WBC RBC Hgb Hct MCV MCH MCHC RDW Plt Count MPV Immature Gran % (Auto) Neut % (Auto) Lymph % (Auto) [place] % (Auto) Eos % (Auto) Baso % (Auto) Lymph # (Auto) [place] # (Auto) Eos # (Auto) Baso # (Auto) Abs Immat Gran (auto) Absolute Neuts (auto) Absolute Nucleated RBC Nucleated RBC % APTT 67.3 H Seconds (22.3-36.8) Hemoglobin A1c Triglycerides Cholesterol LDL Cholesterol Direct HDL Direct Vitamin D 25-Hydroxy Patient hx anesthesia problems: none Family hx anesthesia problems: none Results Review: All pre-operative results and documents have been reviewed as part of the pre-operative evaluation. [facility] Past Medical History Medical History Elevated blood pressure reading Family History Family History Father Carcinoma of colon Sibling Breast cancer Sibling Acute myocardial infarction Social History Social History Smoking status: Never smoker Tobacco type: cigarettes Alcohol intake: current Drinks per week: 8 Alcohol use details: Beer Substance use: never Substance use type: does not use Do You Feel Safe in your Home?: Yes Lack of Transportation: No Lack of Food: Never True Current Housing: I Have Housing Concerned About Future Housing: No Difficulty Paying Gas/Electric Bills: No Difficulty Paying for Meds: No Currently Unemployed: No Education: Decline to Answer Difficulty w/ Childcare or Family Care: No Living arrangements: with family Occupation/Education: occupation Gender identity (if verbalized by the patient): Male Sexual Orientation (if Verbalized by the Patient): Straight or Heterosexual Spiritual care concerns: No Agree to blood products: Yes Anes - Eval Final PreProcedure Day of Procedure 03/21/25 13:23 Patient weight: morbidly obese Heart: regular rate and rhythm Lungs: clear to auscultation Airway: Mallampati scale class III Neurological: alert and oriented Last oral intake: >/= 8 hours ASA classification: III Emergent: no Anesthetic plan: proceed Anesthesia type and monitoring: general GIVS and standard monitoring Results Review: All pre-operative results and documents have been reviewed as part of the pre-operative evaluation. Informed Consent: The patient's anesthetic plan and its attendant risks and benefits were discussed with the patient/family/POA. Questions were solicited and answers provided to the satisfaction of the patient/family/POA.
[2025-03-21] MEDS: AMIODARONE 150 MG/D5W 100 ML 150 MG/100 ML BAG 600 MG (14:05)
--- NOTE | 2025-03-21 14:11 | P.PCNTEECA_ITS ---
TIAGO with Cardioversion Date of procedure: 03/21/25 Procedure Type: TIAGO guided Cardioversion Diagnosis: Afib/RVR Cardiomyopathy Indications: Afib/RVR Description of Procedure: After verbal and written informed consent was obtained, the patient risks, benefits, and alternatives explained in detail. The patient agreed to proceed with the plan of care as outlined above.?The patient was evaluated at bedside in the [facility] procedure room.?The posterior oropharynx, neck, and jaw angle all within normal limits on examination. Lungs were clear to auscultation. See pre-sedation note for further details. The patient was then placed in the appropriate 30 to 45 degree angle supine position at a slight left lateral decubitus position.?Patient was monitored throughout the study with telemetry, oxygen saturation, end-tidal CO2 monitoring, blood pressure, heart rate, and respirations.?The posterior hypopharynx was then locally anesthetized using repeated administration of Hurricaine spray as well as gargled viscous lidocaine. After local anesthetic of the posterior hypopharynx was achieved and the oral bite block placed and anesthesia provided sedation and intraprocedural monitoring.?After confirmation of adequate sedation, the transesophageal echocardiogram probe was advanced through the oral bite block into the posterior hypopharynx and into the esophagus easily and without complication.?Multiple, multiplanar echocardiographic images were obtained in multiple standard re- projections.?Pulsed wave, continuous-wave, and color-flow Doppler were utilized in conjunction with this study.?At the conclusion of the study, the transesophageal echocardiogram probe was removed easily and without complication. The patient tolerated the procedure well without difficulty.?Patient then underwent synchronized cardioversion with 200 J. he converted to NSR with a heart rate in the 90s Sedation: Provided by anesthesis services Findings: 1. Impaired LV systolic function 2. Mild anterior leaflet prolapse 3. No thrombus seen in the LA/GALLO 4. Smoke seen in the LA 5. No PFO seen Conclusion: Successful TIAGO guided cardioversion. NSR post cardioversion
--- NOTE | 2025-03-21 14:12 | P.PNIM_ITS ---
Progress Note: A&P Assessment and Plan (1) Atrial fibrillation with rapid ventricular response: Code(s): I48.91 - Unspecified atrial fibrillation Status: Acute (2) New onset a-fib: Code(s): I48.91 - Unspecified atrial fibrillation Status: Acute Plan Atrial fibrillation with Rapid ventricular response new onset TSH wnl, LDL 83 Troponin negative x3. S/p Heparin infusion, now on Eliquis On Cardizem infusion, heparin infusion, Cardiology following for TIAGO with cardioversion today monitor Cardiomyopathy EF 30% continue Lasix and Cardiology following further ischemic workup per cardiology monitor DVT prophylaxis on heparin infusion Subjective Date/time seen: 03/21/25 14:12 Interval history: Comfortable at bedside For TIAGO with cardioversion today Review of Systems Review of Systems: All other systems were reviewed and negative except as noted in the HPI above Exam Narrative: General: alert and comfortable Eyes: EOMI, PERRLA ENNT External ears normal, Neck is supple, no masses, Respiratory systems: Clear to auscultation Cardiovascular S1, S2, normal rhythm, no murmur, rub, or gallop; no thrill or palpable murmurs on palpation. Gastrointestinal: soft, non-tender, and non-distended abdomen with no masses; BS present Skin: no rash, lesions, ulcerations, subcutaneous nodules or induration Musculoskeletal: no abnormality and no tenderness, normal ROM Neurologic: Alert and oriented x3, non focal Mental Status Exam: normal affect Objective Data Vital Signs Vital Signs: Vital Signs - 24 hr 03/20/25 15:48 03/20/25 16:00 03/20/25 16:00 Temperature Pulse Rate 112 H 108 H 96 Respiratory Rate Blood Pressure 118/86 154/77 H Pulse Oximetry Oxygen Delivery Fraction of Inspired Oxygen 03/20/25 16:12 03/20/25 18:00 03/20/25 18:00 Temperature 97.7 F 98.1 F Pulse Rate 108 H 107 H 104 H Respiratory Rate 18 22 H Blood Pressure 154/77 H 140/98 H Pulse Oximetry 97 99 Oxygen Delivery Fraction of Inspired Oxygen 03/20/25 18:00 03/20/25 20:00 03/20/25 20:00 Temperature Pulse Rate 107 H 119 H Respiratory Rate Blood Pressure 140/98 H 120/94 H Pulse Oximetry Oxygen Delivery Room Air Fraction of Inspired Oxygen 03/20/25 20:00 03/20/25 20:11 03/20/25 21:55 Temperature 98.9 F Pulse Rate 119 H 122 H 102 H Respiratory Rate 22 H 20 Blood Pressure 120/94 H Pulse Oximetry 98 96 Oxygen Delivery Room Air Fraction of Inspired Oxygen 21 03/20/25 22:00 03/20/25 22:00 03/20/25 22:00 Temperature Pulse Rate 102 H 102 H 102 H Respiratory Rate Blood Pressure 117/83 117/83 Pulse Oximetry Oxygen Delivery Fraction of Inspired Oxygen 03/20/25 23:19 03/21/25 00:00 03/21/25 00:00 Temperature 98.8 F Pulse Rate 94 99 Respiratory Rate 22 H Blood Pressure 121/82 121/82 Pulse Oximetry 100 Oxygen Delivery Room Air Fraction of Inspired Oxygen 03/21/25 00:00 03/21/25 01:47 03/21/25 01:47 Temperature Pulse Rate 99 107 H 107 H Respiratory Rate Blood Pressure 100/57 L 100/57 L Pulse Oximetry Oxygen Delivery Fraction of Inspired Oxygen 03/21/25 02:00 03/21/25 02:00 03/21/25 02:00 Temperature Pulse Rate 97 97 97 Respiratory Rate Blood Pressure 100/57 L 100/57 L Pulse Oximetry Oxygen Delivery Fraction of Inspired Oxygen 03/21/25 04:00 03/21/25 04:00 03/21/25 04:00 Temperature 98.6 F Pulse Rate 105 H 105 H 83 Respiratory Rate 22 H Blood Pressure 126/97 H 126/97 H Pulse Oximetry 95 Oxygen Delivery Fraction of Inspired Oxygen 03/21/25 06:00 03/21/25 06:00 03/21/25 06:00 Temperature Pulse Rate 89 89 89 Respiratory Rate Blood Pressure 113/80 113/80 Pulse Oximetry Oxygen Delivery Fraction of Inspired Oxygen 03/21/25 07:53 03/21/25 08:00 03/21/25 08:00 Temperature 97.6 F Pulse Rate 100 100 Respiratory Rate 20 Blood Pressure 115/81 115/81 Pulse Oximetry 97 Oxygen Delivery Room Air Fraction of Inspired Oxygen 03/21/25 08:00 03/21/25 10:00 03/21/25 10:00 Temperature Pulse Rate 108 H 99 105 H Respiratory Rate Blood Pressure 137/99 H Pulse Oximetry Oxygen Delivery Fraction of Inspired Oxygen 03/21/25 10:13 03/21/25 10:44 03/21/25 10:44 Temperature 98.1 F Pulse Rate 100 99 99 Respiratory Rate 20 Blood Pressure 137/99 H Pulse Oximetry 99 Oxygen Delivery Fraction of Inspired Oxygen 03/21/25 11:34 03/21/25 12:00 03/21/25 14:05 Temperature 98.0 F Pulse Rate 99 99 84 Respiratory Rate 18 Blood Pressure 131/98 H 131/98 H 120/95 H Pulse Oximetry 99 Oxygen Delivery Fraction of Inspired Oxygen Intake/Output Intake/Output: Intake & Output 03/18/25 03/19/25 03/20/25 03/21/25 23:59 23:59 23:59 23:59 Intake Total 1488.9 371.7 Output Total 1300 1500 Balance 188.9 -1128.3 Meds/Results Medications: Active Medications Generic Name Dose Route Start Last Admin Trade Name Freq PRN Reason Stop Dose Admin Apixaban 10 mg 03/21/25 14:10 Apixaban 5 Mg Tablet PO 03/21/25 14:11 ONCE ONE Apixaban 5 mg 03/21/25 21:00 Apixaban 5 Mg Tablet PO Q12HR JULIO Furosemide 20 mg 03/20/25 18:05 03/21/25 08:32 Furosemide Inj 40 Mg/4 Ml Vial IV PUSH 20 mg BID JULIO Administration Diltiazem HCl 100 mg in 100 mls @ 10 mls/hr 03/20/25 15:40 03/21/25 12:00 Cardizem 100 Mg/100 Ml IV CONT 10 mg/hr .Q10H JULIO 10 mls/hr Infusion 10 MG/HR Amiodarone HCl/Dextrose 150 mg in 100 mls @ 600 mls/hr 03/21/25 13:56 Nexterone 150 Mg/D5w 100 Ml IV CONT 03/21/25 14:05 .Q10M ONE 15 MG/MIN Amiodarone HCl/Dextrose 360 mg in 200 mls @ 33.333 mls/hr 03/21/25 14:10 Nexterone 360 Mg/D5w 200 Ml IV CONT 03/21/25 20:09 .Q6H ONE 1 MG/MIN Amiodarone HCl/Dextrose 360 mg in 200 mls @ 16.667 mls/hr 03/21/25 14:05 Nexterone 360 Mg/D5w 200 Ml IV CONT .Q12H JULIO 0.5 MG/MIN Metoprolol Succinate 25 mg 03/21/25 17:00 Metoprolol Succinate Ext Rel 25 Mg Tabcr PO BID JULIO Simethicone 125 mg 03/20/25 12:35 03/21/25 06:04 Simethicone 125 Mg Chew Tab PO 125 mg QID PRN Administration bloating Radiology Results: ITS Impressions Chest X-Ray 03/20/25 06:06 Impression: Worsening bibasilar interstitial pulmonary edema with minimal right pleural effusion. Chest CTA 03/20/25 06:08 Impression: No evidence of pulmonary embolus, aortic dissection, or aortic aneurysm. [id number] right pleural effusion and minimal left pleural effusion. Mild mixed alveolar and interstitial pulmonary edema with mild bibasilar atele ctatic change. Venous Doppler Study 03/20/25 14:09 IMPRESSION: 1. No deep venous thrombosis in either lower limb. Labs Labs: Laboratory Results - last 24 hr 03/20/25 03/20/25 03/21/25 17:03 22:53 05:28 WBC 6.9 RBC 5.42 Hgb 15.9 Hct 47.5 MCV 87.6 MCH 29.3 MCHC 33.5 RDW 13.5 Plt Count 326 MPV 9.8 Immature Gran % (Auto) 0.3 Neut % (Auto) 58.1 Lymph % (Auto) 30.1 [place] % (Auto) 9.2 H Eos % (Auto) 1.6 Baso % (Auto) 0.7 Lymph # (Auto) 2.07 [place] # (Auto) 0.6 Eos # (Auto) 0.1 Baso # (Auto) 0.1 Abs Immat Gran (auto) 0.02 Absolute Neuts (auto) 4.0 Absolute Nucleated RBC 0.000 Nucleated RBC % 0.0 APTT 92.2 H 47.7 H 108.5 H Hemoglobin A1c 5.5 Triglycerides 78 Cholesterol 162 LDL Cholesterol Direct 83 HDL Direct 43 Vitamin D 25-Hydroxy 40.1 03/21/25 12:27 WBC RBC Hgb Hct MCV MCH MCHC RDW Plt Count MPV Immature Gran % (Auto) Neut % (Auto) Lymph % (Auto) [place] % (Auto) Eos % (Auto) Baso % (Auto) Lymph # (Auto) [place] # (Auto) Eos # (Auto) Baso # (Auto) Abs Immat Gran (auto) Absolute Neuts (auto) Absolute Nucleated RBC Nucleated RBC % APTT 67.3 H Hemoglobin A1c Triglycerides Cholesterol LDL Cholesterol Direct HDL Direct Vitamin D 25-Hydroxy
[2025-03-21] MEDS: AMIODARONE 360 MG/D5W 200 ML 360 MG/200 ML BAG 33.33 MG IV CONT (14:24)
[2025-03-21] MEDS: APIXABAN 5 MG TABLET 10 MG PO (14:25)
[2025-03-21] MEDS: METOPROLOL SUCCINATE EXT REL 25 MG TABCR PO (14:25)
--- NOTE | 2025-03-21 15:09 | PC.NURSE ---
Pt returned to floor from cardioversion. Denies pain or discomfort.
[2025-03-21] MEDS: AMIODARONE 360 MG/D5W 200 ML 360 MG/200 ML BAG 16.67 MG IV CONT (20:25)
[2025-03-21] MEDS: APIXABAN 5 MG TABLET PO (20:26)
[2025-03-22] VITALS (14 sets, daily range): BP systolic 114–126; BP diastolic 79–92; PULSE 62–111; RESP 16–20; TEMP 36.6–36.7; O2SAT 96–100
[2025-03-22 04:36] LABS: Basophils Absolute Auto 0.1 K/mm3 (0.0-0.1); Basophils Percent Auto 0.7 % (0.2-1.2); Eosinophils Absolute Auto 0.2 K/mm3 (0-0.3); Eosinophils Percent Auto 2.3 % (0-4.4); Hemoglobin 15.1 g/dL (14.0-18.0); Immature Granulocyte Absolute 0.02 K/mm3 (0.00-0.031); Immature Granulocyte Percent A 0.3 % (0-0.5); Lymphocytes Absolute Auto 1.92 K/mm3 (0.9-3.2); Mean Corpuscular HGB Conc 32.8 g/dl (32-36); Mean Corpuscular Hemoglobin 28.8 pg (26-34); Mean Corpuscular Volume 87.8 fl (80-100); Mean Platelet Volume 9.9 fl (7.4-10.4); Monocytes Absolute Auto 0.6 K/mm3 (0.1-0.6); Monocytes Percent Auto 8.9 % (2.6-8.5); Neutrophils Absolute Auto 4.1 K/mm3 (1.3-6.7); Neutrophils Percent Auto 59.8 % (45.5-73.1); Platelet Count Result 315 k/mm3 (150-375); Red Blood Count 5.24 M/mm3 (4.6-6.20); Red Cell Distribution Width 13.2 % (11.5-14.5); White Blood Count 6.9 K/mm3 (4.5-10.0)
[2025-03-22 05:44] LABS: Alanine Aminotransferase 46 U/L (6-50); Albumin Level 3.8 g/dL (3.5-5.1); Alkaline Phosphatase 57 U/L (38-126); Anion Gap 10 mmol/L (4-12); Aspartate Amino Transferase 28 U/L (17-59); Bilirubin,Total 0.8 mg/dL (0.2-1.3); Blood Urea Nitrogen 12 mg/dL (9-20); Calcium 8.9 mg/dL (8.4-10.2); Carbon Dioxide 22 mmol/L (22-30); Chloride 105 mmol/L (98-107); Estimated CRCL calculation 106 ml/min; Estimated Glomerular Filt Rate > 60; Glucose 88 mg/dL (65-110); Magnesium 1.9 mg/dL (1.6-2.3); Potassium 3.8 mmol/L (3.4-5.0); Sodium 137 mmol/L (137-145)
--- NOTE | 2025-03-22 08:12 | PM.PNCARD ---
Progress Note: A&P Assessment and Plan (1) Atrial fibrillation with rapid ventricular response: Code(s): I48.91 - Unspecified atrial fibrillation Status: Acute Assessment and Plan: This is a new diagnosis. Chronicity is unknown. I discussed this diagnosis including the pathophysiology, management strategies, risks/complications. As this is his first known occurrence of atrial fibrillation through shared decision making with the patient and his , rhythm control strategy will be pursued. 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 TTE pending Check apnea link Check TSH NPO after midnight for TIAGO/DCCV tomorrow (2) Hypertension: Qualifiers: Hypertension type: primary hypertension Qualified Code(s): I10 - Essential (primary) hypertension Code(s): I10 - Essential (primary) hypertension Status: Acute Assessment and Plan: At goal. (3) Pleural effusion: Code(s): J90 - Pleural effusion, not elsewhere classified Status: Acute Assessment and Plan: Will give furosemide 20mg IV x 1 now. Further recommendations to follow review of TTE. Subjective Date/time seen: 03/22/25 08:12 Interval history: Comfortable at bedside For TIAGO with cardioversion today Review of Systems Constitutional: Constitutional: Denies chills, Denies fever(s), Denies headache(s) and Denies malaise Eyes: Eyes: Denies change in vision ENT: Reports Normal hearing present, Denies dizziness, Denies headache(s) and Denies hearing loss Cardiovascular: Cardiovascular: Denies chest pain, Denies chest pain at rest, Denies chest pain with activity, Denies syncope, Reports leg edema, Denies palpitations, Reports dyspnea and Denies dyspnea on exertion Respiratory: Respiratory: Denies cough, Reports dyspnea, Denies dyspnea on exertion and Denies wheezing Gastrointestinal: Gastrointestinal: Reports as per HPI, Denies abdominal pain, Reports bloating, Denies constipation and Denies diarrhea Genitourinary: Genitourinary: Denies hematuria and Denies dysuria Musculoskeletal: Musculoskeletal: Denies myalgias, Denies arthralgias and Denies muscle cramps Integumentary/Breasts: Skin/Breast: Denies wounds Neurologic: Reports Normal hearing present, Denies confusion, Denies dizziness, Denies syncope and Denies headache(s) Psychiatric: Psychiatric: Denies anxiety, Denies confusion and Denies depression Endocrine: Endocrine: Denies cold intolerance, Denies flushing, Denies heat intolerance and Denies palpitations Hematologic/Lymphatic: Hematologic/Lymphatic: Denies easy bleeding and Denies easy bruising Allergic/Immunologic: Allergic/Immunologic: Denies wheezing Exam Const: General: comfortable, no acute distress, alert and awake; No confusion Orientation/consciousness: patient oriented x3 and No confusion HENMT: Head: normal to inspection Eyes: General: appearance normal, both eyes and all related structures Pupils: Equal, round and reactive pupils present Neck: Neck: normal visual inspection, supple and no JVD Carotids: normal carotid upstroke Resp: Effort & Inspection: normal respiratory effort Auscultation: rales bilateral at the base Cardio: Rate: tachycardic Rhythm: abnormal rhythm irregularly irregular Heart sounds: S1 normal heart sound present, S2 normal heart sound present and no murmurs GI: Auscultation: normal bowel sounds Skin: General skin exam: normal color Neuro: General: patient oriented x3 and No confusion Cranial nerves: Yes Equal, round and reactive pupils present and Yes Normal hearing present Extrem: General: normal to inspection Other: no edema Psych: Appearance: grossly normal Mental Status: mental status grossly normal Objective Data Vital Signs Vital Signs: Vital Signs - 24 hr 03/21/25 10:00 03/21/25 10:00 03/21/25 10:13 Temperature 36.7 C Pulse Rate 99 105 H 100 Respiratory Rate 20 Blood Pressure 137/99 H 137/99 H Pulse Oximetry 99 Oxygen Delivery Oxygen Flow Rate Fraction of Inspired Oxygen 03/21/25 10:44 03/21/25 10:44 03/21/25 11:34 Temperature 36.7 C Pulse Rate 99 99 99 Respiratory Rate 18 Blood Pressure 131/98 H Pulse Oximetry 99 Oxygen Delivery Oxygen Flow Rate Fraction of Inspired Oxygen 03/21/25 12:00 03/21/25 12:00 03/21/25 12:00 Temperature Pulse Rate 99 96 Respiratory Rate Blood Pressure 131/98 H Pulse Oximetry Oxygen Delivery Room Air Oxygen Flow Rate Fraction of Inspired Oxygen 03/21/25 14:05 03/21/25 14:10 03/21/25 14:15 Temperature Pulse Rate 84 85 88 Respiratory Rate 18 16 Blood Pressure 120/95 H 131/106 H 122/93 H Pulse Oximetry 94 94 Oxygen Delivery Nasal Cannula Room Air Oxygen Flow Rate 2 Fraction of Inspired Oxygen 03/21/25 14:24 03/21/25 14:25 03/21/25 14:30 Temperature Pulse Rate 88 88 95 Respiratory Rate 16 Blood Pressure 122/93 H 129/105 H Pulse Oximetry 98 Oxygen Delivery Room Air Oxygen Flow Rate Fraction of Inspired Oxygen 03/21/25 14:39 03/21/25 15:37 03/21/25 16:00 Temperature 36.7 C Pulse Rate 84 80 80 Respiratory Rate 18 20 Blood Pressure 136/92 H 133/99 H 133/99 H Pulse Oximetry 95 98 Oxygen Delivery Room Air Oxygen Flow Rate Fraction of Inspired Oxygen 03/21/25 16:00 03/21/25 16:00 03/21/25 18:00 Temperature Pulse Rate 80 88 Respiratory Rate Blood Pressure Pulse Oximetry Oxygen Delivery Room Air Oxygen Flow Rate Fraction of Inspired Oxygen 03/21/25 18:00 03/21/25 18:27 03/21/25 20:00 Temperature 36.5 C Pulse Rate 83 83 91 Respiratory Rate 18 Blood Pressure 127/87 127/87 113/91 H Pulse Oximetry 97 Oxygen Delivery Oxygen Flow Rate Fraction of Inspired Oxygen 03/21/25 20:00 03/21/25 20:25 03/21/25 20:25 Temperature Pulse Rate 92 87 87 Respiratory Rate 18 Blood Pressure 113/91 H Pulse Oximetry 97 Oxygen Delivery Room Air Oxygen Flow Rate Fraction of Inspired Oxygen 21 03/21/25 21:59 03/21/25 22:00 03/21/25 22:00 Temperature Pulse Rate 81 82 86 Respiratory Rate Blood Pressure 119/89 119/89 Pulse Oximetry 98 Oxygen Delivery Oxygen Flow Rate Fraction of Inspired Oxygen 03/21/25 23:48 03/22/25 00:00 03/22/25 00:00 Temperature 36.6 C Pulse Rate 81 92 92 Respiratory Rate 18 Blood Pressure 114/91 H 114/91 H Pulse Oximetry 96 Oxygen Delivery Oxygen Flow Rate Fraction of Inspired Oxygen 03/22/25 00:08 03/22/25 02:00 03/22/25 02:00 Temperature Pulse Rate 85 85 85 Respiratory Rate 18 Blood Pressure 120/88 Pulse Oximetry 96 Oxygen Delivery Room Air Oxygen Flow Rate Fraction of Inspired Oxygen 03/22/25 02:00 03/22/25 03:47 03/22/25 03:51 Temperature 36.6 C Pulse Rate 85 68 68 Respiratory Rate 16 18 18 Blood Pressure 120/88 122/79 Pulse Oximetry 97 97 97 Oxygen Delivery Room Air Oxygen Flow Rate Fraction of Inspired Oxygen 21 03/22/25 04:00 03/22/25 04:27 03/22/25 06:00 Temperature Pulse Rate 66 62 71 Respiratory Rate Blood Pressure 122/79 Pulse Oximetry Oxygen Delivery Oxygen Flow Rate Fraction of Inspired Oxygen 03/22/25 06:00 03/22/25 06:00 03/22/25 08:00 Temperature 36.6 C Pulse Rate 78 77 80 Respiratory Rate 20 Blood Pressure 126/92 H 126/92 H 124/88 Pulse Oximetry 96 97 Oxygen Delivery Oxygen Flow Rate Fraction of Inspired Oxygen Intake/Output Intake/Output: Intake & Output 03/19/25 03/20/25 03/21/25 03/22/25 23:59 23:59 23:59 23:59 Intake Total 1488.9 838.1 683.2 Output Total 1300 3300 500 Balance 188.9 -2461.9 183.2 Meds/Results Medications: Active Medications Generic Name Dose Route Start Last Admin Trade Name Freq PRN Reason Stop Dose Admin Apixaban 5 mg 03/21/25 21:00 03/21/25 20:26 Apixaban 5 Mg Tablet PO 5 mg Q12HR JULIO Administration Furosemide 20 mg 03/20/25 18:05 03/21/25 16:25 Furosemide Inj 40 Mg/4 Ml Vial IV PUSH 20 mg BID JULIO Administration Metoprolol Succinate 25 mg 03/21/25 17:00 03/21/25 14:25 Metoprolol Succinate Ext Rel 25 Mg Tabcr PO 25 mg BID JULIO Administration Simethicone 125 mg 03/20/25 12:35 03/21/25 20:30 Simethicone 125 Mg Chew Tab PO 125 mg QID PRN Administration bloating Radiology Results: ITS Impressions Chest X-Ray 03/20/25 06:06 Impression: Worsening bibasilar interstitial pulmonary edema with minimal right pleural effusion. Chest CTA 03/20/25 06:08 Impression: No evidence of pulmonary embolus, aortic dissection, or aortic aneurysm. [id number]-[id number] right pleural effusion and minimal left pleural effusion. Mild mixed alveolar and interstitial pulmonary edema with mild bibasilar atelectatic change. Venous Doppler Study 03/20/25 14:09 IMPRESSION: 1. No deep venous thrombosis in either lower limb. Labs Labs: Laboratory Results - last 24 hr 03/21/25 03/22/25 12:27 04:07 WBC 6.9 RBC 5.24 Hgb 15.1 Hct 46.0 MCV 87.8 MCH 28.8 MCHC 32.8 RDW 13.2 Plt Count 315 MPV 9.9 Immature Gran % (Auto) 0.3 Neut % (Auto) 59.8 Lymph % (Auto) 28.0 [place] % (Auto) 8.9 H Eos % (Auto) 2.3 Baso % (Auto) 0.7 Lymph # (Auto) 1.92 [place] # (Auto) 0.6 Eos # (Auto) 0.2 Baso # (Auto) 0.1 Abs Immat Gran (auto) 0.02 Absolute Neuts (auto) 4.1 Absolute Nucleated RBC 0.000 Nucleated RBC % 0.0 APTT 67.3 H Sodium 137 Potassium 3.8 Chloride 105 Carbon Dioxide 22 Anion Gap 10 BUN 12 D Creatinine 1.05 Estim Creat Clear Calc 106 Estimated GFR > 60 Glucose 88 Calcium 8.9 Magnesium 1.9 Total Bilirubin 0.8 AST 28 ALT 46 Alkaline Phosphatase 57 Total Protein 6.0 L Albumin 3.8
[2025-03-22] MEDS: APIXABAN 5 MG TABLET PO (08:45)
[2025-03-22] MEDS: LOSARTAN POTASSIUM 25 MG TABLET PO (08:45)
[2025-03-22] MEDS: METOPROLOL SUCCINATE EXT REL 25 MG TABCR PO (08:45)
[2025-03-22] MEDS: EMPAGLIFLOZIN 10 MG TABLET PO (08:46)
[2025-03-22] MEDS: FUROSEMIDE INJ 40 MG/4 ML VIAL 20 MG IV PUSH (08:54)
[2025-03-22 13:25] LABS: Free T4 Free Thyroxine Reflex 1.39 ng/dL (0.78-2.19)
--- NOTE | 2025-03-22 14:17 | P.DS_ITS ---
DS: Admitting Diagnosis Discharge Date 03/22/25 Admitting Diagnosis SOb and chest pain DS: Discharge Diagnosis Discharge Diagnosis (1) New onset a-fib: Code(s): I48.91 - Unspecified atrial fibrillation Status: Acute DS: Summary Hospital Course Hospital Course: 49 yo M with no significant PMH who presented to the ER with SOB and Chest pain. Noted that he has been having SOB the past 10 days however he stated he started having chest pain about 1 am last night. otherwise denies any vomiting, abd pain, diarrhea, no lightheadedness and loss of consciousness. ER eval noted GA 154, RR 19, T 97.6, BP 144/131, saturating 100% on room air. Labs mostly unremarkable, troponin negative X3, LDL 83, A1c 5.5, TSH 3.24. Venous doppler negative, CTA chest small to moderate right pleural effusion and minimal left pleural effusion and interstitial pulmonary edema. EKG showed afib RVR. patient was placed on Cardizem infusion. Cardiology was consulted and patient underwent TIAGO with cardioversion and has been in NSR. ECHo showed EF 30-35%. cardiology placed patient on Amiodarone 40mg daily, Metoprolol, Losartan 25mg, Jardiance. Discharged on these meds and 30 days of Eliquis. Lifevest placed by cardiology F/u with PCP in 3-5 days and cardiology as instructed. Time Spent with Patient Time attestation: Total time spent providing and/or coordinating discharge services: DS: Data Data Completed and Pending Labs on day of discharge: Labs from last 24 hours 03/22/25 04:07 WBC 6.9 RBC 5.24 Hgb 15.1 Hct 46.0 MCV 87.8 MCH 28.8 MCHC 32.8 RDW 13.2 Plt Count 315 MPV 9.9 Immature Gran % (Auto) 0.3 Neut % (Auto) 59.8 Lymph % (Auto) 28.0 [place] % (Auto) 8.9 H Eos % (Auto) 2.3 Baso % (Auto) 0.7 Lymph # (Auto) 1.92 [place] # (Auto) 0.6 Eos # (Auto) 0.2 Baso # (Auto) 0.1 Abs Immat Gran (auto) 0.02 Absolute Neuts (auto) 4.1 Absolute Nucleated RBC 0.000 Nucleated RBC % 0.0 Sodium 137 Potassium 3.8 Chloride 105 Carbon Dioxide 22 Anion Gap 10 BUN 12 D Creatinine 1.05 Estim Creat Clear Calc 106 Estimated GFR > 60 Glucose 88 Calcium 8.9 Magnesium 1.9 Total Bilirubin 0.8 AST 28 ALT 46 Alkaline Phosphatase 57 Total Protein 6.0 L Albumin 3.8 TSH (Reflex) 4.080 Free T4 1.39 Total T3 Pending Discharge Plan Discharge Attending physician on discharge: Esteban Carl Consulting providers: Natasha Cheney Discharging Clinician: Esteban Carl Anticipated Discharge Date/Time: 03/22/25 13:16 Patient Disposition: Home Activity: as tolerated Diet: as tolerated and heart healthy Patient Instructions: Antibiotic Form, Heart Failure (DC), A-fib (Atrial Fibrillation) (DC) Patient Language: Moroccan Stand Alone Forms: General Discharge Information Follow-up/Referrals: Anton Pickens MD [Primary Care Provider] - (F/u with PCP in 3-5 days ) Natasha Cheney MD [Physician] - (F/u with cardiology as instructed ) Discharge Medications: New amiodarone [Pacerone] 200 mg Tablet 400 mg PO DAILY@0800 30 Days Qty: 60 0RF metoprolol succinate [Toprol XL] 25 mg Tablet Extended Release 24 Hr 25 mg PO BID 30 Days Qty: 60 1RF Eliquis 5 mg Tablet 5 mg PO Q12HR 30 Days Qty: 60 0RF Jardiance 10 mg Tablet 10 mg PO DAILY 30 Days Qty: 30 1RF losartan 25 mg Tablet 25 mg PO DAILY 30 Days Qty: 30 1RF Continued albuterol sulfate 90 mcg/actuation HFA aerosol inhaler 2 puff inhalation Q4-6H PRN (Reason: shortness of breath or wheezing) 30 Days Qty: 8.5 0RF Discontinued lisinopril 10 mg tablet 10 mg PO DAILY Qty: 30 0RF Zepbound 5 mg/0.5 mL pen injector 5 mg subcut WEEKLY Qty: 2 0RF Date of admission: 03/20/25 05:50 Primary Care Provider: Anton Pickens Admitting Provider: Cecily Naranjo Attending physician on admission: Cecily Naranjo Condition: Stable
[2025-03-22 18:02] LABS: Total Triiodothyronine (T3) 1.11 NG/ML (0.97-1.69)
== END 2025-03-22 16:59 | disposition home or self-care (01) | DRG 309 ==
LOC: ANHED 03:50 → ANHIMU 06:44
PROVIDERS: Internal Medicine Interventional Cardiology; Nurse Practitioner; Admitting Provider Internal Medicine; Emergency Provider Student in an Organized Health Care Education/Training Program; PCP Family Medicine; Visit Provider Internal Medicine
PROC: 5A2204Z Restoration of Cardiac Rhythm, Single (ICD-10-PCS; principal; 2025-03-21 13:00)
PROC: B24BZZ4 Ultrasonography of Heart with Aorta, Transesophageal (ICD-10-PCS; CPT 93312; 2025-03-21 13:00)
DX: I48.91 Unspecified atrial fibrillation (principal); J81.1 Chronic pulmonary edema; J90 Pleural effusion, not elsewhere classified; I42.9 Cardiomyopathy, unspecified; I10 Essential (primary) hypertension; Z68.39 Body mass index [BMI] 39.0-39.9, adult; E66.01 Morbid (severe) obesity due to excess calories
CPT/HCPCS: 36415; 71046; 71275; 80053; 80061; 82306; 83036; 83690; 83735; 84439; 84443; 84480; 84484; 85025; 85610; 85730; 92960; 93005; 93312; 93320; 93325; 93970; 94762; 96374; 96375; 96376; 99291; A9270; C8929; J0282; J1644; J1938; J2250; J2704; J3010; J7040; Q9957; Q9967